=== PATIENT | female | born 1995 | race African-American/Black ===

== ENCOUNTER 2017-10-01 11:28 | Emergency (ER) | payer SELFPAY ==
[2017-10-01 11:47] VITALS: BP 158/83
--- NOTE | 2017-10-01 12:36 | RAD ---
Examination: Left elbow, two views History: Fell Findings: There is no evidence for fracture, dislocation or synovial distension. There is a linear fo reign density noted on the skin surface or in the soft tissues of the upper arm. Correlate clinically . Impression: No recent injury identified. See above. Reported By:
--- NOTE | 2017-10-01 12:37 | RAD ---
Examination: Right knee, two views History: Fell Findings: AP and lateral views demonstrate no evidence for fracture, dislocation, patellar displaceme nt or synovial effusion. Joint spaces are maintained. Femoral-tibial alignment is anatomic. Impression: No recent injury identified. Reported By:
--- NOTE | 2017-10-01 12:45 | DR.GENAD ---
HPI - PCP Primary Care Physician: NFD - HPI Comment HPI Comment: DOG DID NOT BITE PATIENT. ABRASION RIGHT KNEE AND LEFT ELBOW. TD NOT UTD. - Complaint/Symptoms Chief Complaint Doctors Comments: FELL WITH HER CHILD IN HER ARM RUNNING AWAY FROM THE DOG. Chief Complaint:: PT C/O RT KNEE ABRASION AND LT ELBOW ABRASION. PT WAS HOLDING A INFANT WHILE BEING CHASED BY A DOG AND SHE TRIPPED AND FELL ONTO THE SIDE WALK WITH CHILD IN ARMS. - Nurses notes reviewed Nurses Notes Review: Yes - Source History Provided: Patient - Mode of Arrival Mode of Arrival: EMS - Timing Onset of Chief Complaint: 10/01/17 Came on: Suddenly - Duration Duration: Constant Duration: Hours - Severity Severity: Moderate PMH - PMH Past Medical History: No Past Surgical History: Yes Surgical History: Bowel Resection, , CABG/Valve Surgery, Other - Family History History of Family Medical Conditions: Yes Family Medical History: Diabetes Mellitus, Cancer, Coronary Artery Disease - Social History Does any household member use tobacco: Yes Alcohol Use: None Do you use any recreational Drugs:: No Lives With: Family Lives Where: Home - infectious screening In the last 2 months have you had wt loss of >10#?: NO Have you had fever, night sweats or hemotysis?: No Have you traveled outside the country in the last 6 months?: No Isolation: Standard ROS - Review of Systems Constitutional: No Symptoms Reported Eyes: No Symptoms Reported ENTM: No Symptoms Reported Respiratoy: No Symptoms Reported Cardiovascular: No Symptoms Reported Gastrointestinal/Abdominal: No Symptoms Reported Genitourinary: No Symptoms Reported Neurological: No Symptoms Reported Musculoskeletal: Joint Pain, Joint Swelling, Muscle Pain, Right, Left, Elbow, Knee Integumentary: Change in Color, Bruises, Other (ABRASIONS) Hematologic/Lymphatic: No Symptoms Reported Endocrine: No Symptoms Reported All Other Systems: Reviewed and Negative PE - Vital Signs Vitals: Temperature 98.3 F Pulse Rate 100 Respiratory Rate 20 Blood Pressure 158/83 O2 Sat by Pulse Oximetry 100 - General Limitations: No Limitations General Appearance: Alert - Head Head Exam: Normal Inspection - Eyes Eye exam: Normal Appearance - ENT ENT Exam: Normal External Ear Exam External Ear Exam: Normal External Inspection TM/Canal Exam: Bilateral Normal Nose Exam: Normal Nose Exam Mouth Exam: Normal Inspection Throat Exam: Normal Inspection - Neck Neck Exam: Normal Inspection - Chest Chest Inspection: Symmetric Chest Wall Rise - Respiratory Respiratory Exam: Normal Lung Sounds Bilat Respiratory Exam: Bilateral Clear to Auscultation - Cardiovascular Cardiovascular Exam: Regular Rate, Normal Rhythm, Normal Heart Sounds - Abdominal Exam Abdominal Exam: Normal Bowel Sounds, Soft. negative: Tenderness - Extremities Extremities Exam: Tenderness (ABRSION LT ELBOW AND RT KNEE WITH SWELLING. PHILIPPE.) - Back Back Exam: Normal Inspection - Neurologic Neurological Exam: Alert, Oriented X3 - Psychiatric Psychiatric Exam: Normal Affect, Normal Mood - Skin Skin Exam: Erythema MDM - Differential Diagnosis Differential Diagnosis: RIGHT KNEE SPRAIN AND ABRASION, LEFT ELBOW CONTUSION AND ABRASION Course - Treatment Treatment: SEE ORDERS. ABRSION CLEAN AND NEOSPORIN APPLIED. - Education/Counseling Education/Counseling: Patient, Education Educated On: Treatment, Diagnosis, Needs for Follow Up ROR - XRAY XRAY Findings: REPORT DISCUSS WITH PATIENT. - Diagnosis Discharge Problem: Abrasion, right knee, initial encounter Left elbow contusion Qualifiers: Encounter type: initial encounter Qualified Code(s): S50.02XA - Contusion of left elbow, initial encounter Abrasion of left elbow Qualifiers: Encounter type: initial encounter Qualified Code(s): S50.312A - Abrasion of left elbow, initial encounter Right knee sprain Qualifiers: Encounter type: initial encounter Involved ligament of knee: unspecified ligament Qualified Code(s): S83.91XA - Sprain of unspecified site of right knee , initial encounter - Discharge Plan Disposition: 01 HOME, SELF-CARE Condition: Stable Prescriptions: Ibuprofen [MOTRIN TAB 600 MG *] 600 mg PO TID PRN #20 tab PRN Reason: Pain/Inflammation - Follow ups/Referrals Follow ups/Referrals: NFD,None [Primary Care Provider] - 2 days - Instructions Instructions: Smoking Cessation, Tips for Success, [id number], Musculoskeletal Pain, Knee Pain, [id number] Additional Instructions: RETURN TO ED IF WORSE.
[2017-10-01] MEDS ORDERED: HYDROGEN PEROXIDE 3% ONE (13:04)
[2017-10-01] MEDS ORDERED: NEOSPORIN OINT ONE (13:04)
== END 2017-10-01 13:13 | disposition home or self-care (01) ==
LOC: ER 11:42
DX: S80.211A Abrasion, right knee, initial encounter (principal); S50.02XA Contusion of left elbow, initial encounter; S50.312A Abrasion of left elbow, initial encounter; S83.91XA Sprain of unspecified site of right knee, initial encounter; W19.XXXA Unspecified fall, initial encounter; Y92.9 Unspecified place or not applicable
CPT/HCPCS: 73070; 73560; 99282

== ENCOUNTER 2018-03-09 15:16 | Observation (INO) | payer MEDICAID ==
--- NOTE | 2018-03-09 15:45 | ED.ABDFE ---
HPI - Time seen Time seen: 15:40 - PCP Primary Care Physician: NFD - Complaint Chief Complaint Doctors Comments: ABDOMINAL PAIN, N/V/D TIMES 3 DAYS. Chief Complaint:: PT. C/O ABDOMINAL PAIN, N/V/D. - Nurses notes reviewed Nurses Notes Review: Yes - Source History Provided: Patient - Mode of arrival Mode of Arrival: Ambulatory - Timing Onset of Chief Complaint: 03/06/18 Came on: Suddenly - Duration Duration: Constant Duration: Days - Location Location: Diffuse - Severity Severity: Moderate - Quality Quality: Cramping - Context Onset: Suddenly History of: None - Modifying Worsening Factors: Nothing Improving Factors: Nothing - Associated signs and symptoms Associated Signs and Symptoms: Nausea, Vomiting, Diarrhea PMH - PMH Past Medical History: No Past Surgical History: Yes Surgical History: Bowel Resection, , CABG/Valve Surgery, Other - Family History History of Family Medical Conditions: Yes Family Medical History: Diabetes Mellitus, Cancer, Coronary Artery Disease - Social History Does patient currently use any type of tobacco product: Yes Have you used tobacco products in the last 12 months: Yes Type of Tobacco Use: Cigarettes Does any household member use tobacco: No Alcohol Use: None Do you use any recreational Drugs:: No Lives With: Alone Lives Where: Home - infectious screening In the last 2 months have you had wt loss of >10#?: NO Have you had fever, night sweats or hemotysis?: No Have you traveled outside the country in the last 6 months?: No Isolation: Standard ROS - Review of Systems Constitutional: No Symptoms Reported Eyes: No Symptoms Reported ENTM: No Symptoms Reported Respiratoy: No Symptoms Reported Cardiovascular: No Symptoms Reported Gastrointestinal/Abdominal: Abdominal Pain, Diarrhea, Nausea, Vomiting Genitourinary: No Symptoms Reported Neurological: No Symptoms Reported Musculoskeletal: No Symptoms Reported Integumentary: No Symptoms Reported Hematologic/Lymphatic: No Symptoms Reported Endocrine: No Symptoms Reported All Other Systems: Reviewed and Negative PE - Vital Signs Vitals: Temperature 99.6 F Pulse Rate [Left Brachial] 91 Pulse Rate 130 Respiratory Rate 18 Blood Pressure [Left Arm] 120/57 Blood Pressure 128/87 O2 Sat by Pulse Oximetry 100 - General Limitations: No Limitations General Appearance: Alert - Head Head Exam: Normal Inspection - Eyes Eye exam: Normal Appearance - ENT ENT Exam: Normal External Ear Exam - Neck Neck Exam: Trachea Midline - Chest Chest Inspection: Symmetric Chest Wall Rise - Respiratory Respiratory Exam: Prolonged Expiratory Phase Respiratory Exam: Bilateral Clear to Auscultation - Cardiovascular Cardiovascular Exam: Regular Rate, Normal Rhythm, Normal Heart Sounds - Abdominal Exam Abdominal Exam: Normal Bowel Sounds, Soft, Tenderness Abdominal Tenderness: Diffuse, Moderate - Rectal Rectal Exam: Deferred - Back Back Exam: Normal Inspection - Extremeties Extremities Exam: Normal Inspection - External Exam: Female: Deferred : Speculum Exam (Female): Deferred : Bimanual Exam (female): Deferred - Neurologic Neurological Exam: Alert, Oriented X3 - Psychiatric Psychiatric Exam: Normal Affect, Normal Mood - Skin Skin Exam: Normal Color MDM - Differential Diagnosis Differential Diagnosis- Considerations may include:: Bowel Obstruction, Cholcystitis, Cholelethiasis, Constipation, Diverticular disease, Gastritus/PUD , Gastroenteritis, Ovarian cyst/torsion, Pancreatitis, Urinary tract infection, Urolithiasis Course - Treatment Treatment: SEE ORDERS. SURGERY CONSULT. - Consultation Consultation Comments: DISCUSS PATIENT WITH DR. PALM, SURGEON. HERE IN ED AND SAW PATIENT . CT ABD/PELVIS WITH PO CONTRAST. PT ALLERGIC TO IV CONTRAST. DR. STONE WILL ADMIT PT. - Education/Counseling Education/Counseling: Patient, Education Educated On: Treatment, Diagnosis, Needs for Follow Up ROR - Labs Reviewed Laboratory Results Reviewed?: Yes Result Diagrams: 03/09/18 16:27 03/09/18 16:27 Laboratory: WBC 17.9 X10^3/uL (3.6-10.0) H 03/09/18 16:27 RBC 5.32 X10^6/uL (3.5-5.4) 03/09/18 16:27 Hgb 12.0 g/dL (12.0-16.0) 03/09/18 16:27 Hct 37.3 % (36.0-47.0) 03/09/18 16:27 MCV 70.0 fL (80.0-100.0) L 03/09/18 16:27 MCH 22.6 pg (27.0-34.0) L 03/09/18 16:27 MCHC 32.3 g/dL (33.0-35.0) L 03/09/18 16:27 RDW 16.6 % (11.6-16.5) H 03/09/18 16:27 Plt Count 277 X10^3/uL (150.0-450.0) 03/09/18 16:27 Plt Count Comment Adequate (ADEQUATE) 03/09/18 16:27 MPV 8.8 fL (7.4-11.0) 03/09/18 16:27 Neut % (Auto) 79.3 % (42.0-75.0) H 03/09/18 16:27 Lymph % (Auto) 9.4 % (21.0-51.0) L 03/09/18 16:27 [place] % (Auto) 10.8 % (0.0-13.0) 03/09/18 16:27 Eos % (Auto) 0.3 % (0.9-2.9) L 03/09/18 16:27 Baso % (Auto) 0.2 % (0.2-1.0) 03/09/18 16:27 Neut # (Auto) 14.2 x10^3/uL (2.2-4.8) H 03/09/18 16:27 Lymph # (Auto) 1.7 X10^3/uL (1.3-2.9) 03/09/18 16:27 [place] # (Auto) 1.9 x10^3/uL (0.3-0.8) H 03/09/18 16:27 Eos # (Auto) 0.0 x10^3/uL (0.0-0.2) 03/09/18 16:27 Baso # (Auto) 0.0 X10^3/uL (0.0-0.1) 03/09/18 16:27 Absolute Nucleated RBC 0.0 /100WBC 03/09/18 16:27 Plt Morphology Comment Normal (NORMAL) 03/09/18 16: RBC Morphology Abnormal (NORMAL) A 03/09/18 16:27 Hypochromasia 2+ A 03/09/18 16:27 Anisocytosis Slight A 03/09/18 16:27 Microcytosis Slight A 03/09/18 16:27 Tear Drop Cells R 03/09/18 16:27 Sodium 140 mmol/L (136-145) 03/09/18 16:27 Corrected Sodium TNP 03/09/18 16:27 Potassium 3.5 mmol/L (3.5-5.1) 03/09/18 16:27 Chloride 100 mmol/L (98-107) 03/09/18 16:27 Carbon Dioxide 29.7 mmol/L (21-32) 03/09/18 16:27 BUN 6 mg/dL (7-18) L 03/09/18 16:27 Creatinine 0.77 mg/dL (0.55-1.02) 03/09/18 16:27 Est GFR (MDRD) Af Amer > 60 (>60) 03/09/18 16:27 Est GFR (MDRD) Non-Af > 60 (>60) 03/09/18 16:27 Glucose 95 mg/dL (65-99) 03/09/18 16:27 Calcium 8.8 mg/dL (8.5-10.1) 03/09/18 16:27 Corrected Calcium TNP 03/09/18 16:27 Total Bilirubin 1.00 mg/dL (0.2-1.0) 03/09/18 16:27 AST 9 Units/L (15-37) L 03/09/18 16:27 ALT 14 Units/L (12-78) 03/09/18 16:27 Alkaline Phosphatase 69 Units/L (46-116) 03/09/18 16:27 Total Protein 9.5 g/dL (6.4-8.2) H 03/09/18 16:27 Albumin 3.8 g/dL (3.4-5.0) 03/09/18 16:27 Globulin 5.7 g/dL (2.5-4.5) H 03/09/18 16:27 Albumin/Globulin Ratio 0.7 Ratio (1.1-2.1) L 03/09/18 16:27 Amylase 37 Units/L (25-115) 03/09/18 16:27 Lipase 61 Units/L (73-393) L 03/09/18 16:27 Specimen Type Clean catch urine 03/09/18 16:15 Urine Color Yellow (YELLOW) 03/09/18 16:15 Urine Appearance Slightly hazy (CLEAR) 03/09/18 16:15 Urine pH 9.0 (5.0 - 8.0) 03/09/18 16:15 Ur Specific Carrier 1.015 (1.000-1.030) 03/09/18 16:15 Urine Protein 1+ (NEGATIVE) 03/09/18 16:15 Urine Glucose (UA) Negative (NEGATIVE) 03/09/18 16:15 Urine Ketones Negative (NEGATIVE) 03/09/18 16:15 Urine Occult Blood 1+ (NEGATIVE) 03/09/18 16:15 Urine Nitrite Negative (NEGATIVE) 03/09/18 16:15 Urine Bilirubin Negative (NEGATIVE) 03/09/18 16:15 Urine Urobilinogen Normal (NORMAL) 03/09/18 16:15 Ur Leukocyte Esterase 1+ (NEGATIVE) 03/09/18 16:15 Urine RBC 0-2 /HPF (NONE SEEN) 03/09/18 16:15 Urine WBC 0-2 /HPF (NONE SEEN) 03/09/18 16:15 Ur Squamous Epith Cells Many /HPF (NEGATIVE) 03/09/18 16:15 Urine Bacteria Trace /HPF (NEGATIVE) 03/09/18 16:15 Urine Mucus Few /HPF (NEGATIVE) 03/09/18 16:15 Ur Culture Indicated? No/not indicated 03/09/18 16:15 - XRAY XRAY Interpreted by: Radiologist XRAY Findings: REPORT DISCUSS WITH PATIENT. - Diagnosis Discharge Problem: Abdominal pain Qualifiers: Abdominal location: generalized Qualified Code(s): R10.84 - Generalized abdominal pain Leukocytosis Qualifiers: Leukocytosis type: unspecified Qualified Code(s): D72.829 - Elevated white blood cell count, unspecified - Discharge Plan Disposition: ADMITTED INPATIENT Condition: Stable - Follow ups/Referrals - Instructions
[2018-03-09] MEDS ORDERED: ZOFRAN INJ 4 MG VIAL IM ONE (16:12)
[2018-03-09] MEDS ORDERED: PEPCID TAB 20 MG PO ONE (16:13)
[2018-03-09] MEDS ORDERED: ZOFRAN INJ 4 MG VIAL ONE (16:16)
[2018-03-09] MEDS ORDERED: PEPCID TAB 20 MG ONE (16:16)
[2018-03-09 16:34] LABS: BASOPHILS % (AUTO) 0.2 % (0.2-1.0); EOSINOPHILS % (AUTO) 0.3 % (0.9-2.9); HEMATOCRIT 37.3 % (36.0-47.0); LYMPHOCYTES # (AUTO) 1.7 X10^3/uL (1.3-2.9); LYMPHOCYTES % (AUTO) 9.4 % (21.0-51.0); MEAN CORPUSCULAR HEMOGLOBIN 22.6 pg (27.0-34.0); MEAN CORPUSCULAR HGB CONC 32.3 g/dL (33.0-35.0); MEAN PLATELET VOLUME 8.8 fL (7.4-11.0); MONOCYTES # (AUTO) 1.9 x10^3/uL (0.3-0.8); MONOCYTES % (AUTO) 10.8 % (0.0-13.0); NEUTROPHILS # (AUTO) 14.2 x10^3/uL (2.2-4.8); NEUTROPHILS % (AUTO) 79.3 % (42.0-75.0); PLATELET COUNT 277 X10^3/uL (150.0-450.0); RED BLOOD COUNT 5.32 X10^6/uL (3.5-5.4); RED CELL DISTRIBUTION WIDTH 16.6 % (11.6-16.5); WHITE BLOOD COUNT 17.9 X10^3/uL (3.6-10.0)
[2018-03-09 16:34] LABS: BILIRUBIN,URINE NEGATIVE (NEGATIVE); BLOOD/HEMOGLOBIN,URINE 1+ (NEGATIVE); GLUCOSE, URINE NEGATIVE (NEGATIVE); KETONES,URINE NEGATIVE (NEGATIVE); LEUKOCYTE ESTERASE ,URINE 1+ (NEGATIVE); NITRITES,URINE NEGATIVE (NEGATIVE); PROTEIN,URINE 1+ (NEGATIVE); UROBILINOGEN,URINE NORMAL (NORMAL)
[2018-03-09 16:38] LABS: APPEARANCE,URINE SLIGHTLY HAZY (CLEAR); COLOR,URINE YELLOW (YELLOW)
[2018-03-09 16:41] LABS: BACTERIA,URINE TRACE /HPF (NEGATIVE); MUCUS,URINE FEW /HPF (NEGATIVE); RBC,URINE 0-2 /HPF (NONE SEEN); SQUAMOUS EPITHELIAL CELL,UR MANY /HPF (NEGATIVE)
[2018-03-09 16:44] LABS: HYPOCHROMASIA 2+; PLATELET MORPHOLOGY COMMENT NORMAL (NORMAL)
[2018-03-09 16:45] LABS: MICROCYTOSIS SLIGHT
[2018-03-09 16:46] LABS: ALANINE AMINOTRANSFERASE 14 Units/L (12-78); ALBUMIN 3.8 g/dL (3.4-5.0); ALKALINE PHOSPHATASE 69 Units/L (46-116); AMYLASE 37 Units/L (25-115); ASPARTATE AMINO TRANSFERASE 9 Units/L (15-37); BLOOD UREA NITROGEN 6 mg/dL (7-18); CALCIUM 8.8 mg/dL (8.5-10.1); CARBON DIOXIDE 29.7 mmol/L (21-32); CHLORIDE 100 mmol/L (98-107); CREATININE 0.77 mg/dL (0.55-1.02); LIPASE 61 Units/L (73-393); SODIUM 140 mmol/L (136-145); TOTAL PROTEIN 9.5 g/dL (6.4-8.2); eGFR BLACK RACES > 60 (>60); eGFR NON BLACK RACES > 60 (>60)
--- NOTE | 2018-03-09 16:53 | RAD ---
HISTORY: Radiating mid abdominal pain Study: Acute abdominal series, three views were obtained Comparison: May 07, 2016 Findings: The heart is normal. The lungs are clear. There is no pneumoperitoneum. There is a normal bowel gas p attern. Focal lumbar levoscoliosis is noted is noted at the L3-4 level convex to the left. IMPRESSION: No definite acute finding within the chest or abdomen. Reported By:
[2018-03-09] MEDS ORDERED: BENTYL I.M. INJ 10 MG IM ONE ×2 (17:10→17:12)
--- NOTE | 2018-03-09 19:13 | CT ---
CT ABDOMEN AND PELVIS WITHOUT CONTRAST CLINICAL HISTORY: 23-year-old female with abdominal pain. Patient with history of prior colostomy and section. COMPARISON: None. TECHNIQUE: Multiple contiguous computed tomographic axial images of the abdomen and pelvis were obtai valentín without the use of oral or intravenous contrast. Images were reformatted in the coronal and sagit marianna planes. FINDINGS: Study is significantly limited secondary to lack of contrast. The lung bases demonstrate no evidence of focal air-space opacification, pleural effusion, pneumothor ax, or suspicious pulmonary nodules. The imaged inferior mediastinum and heart are normal in appeara nce without evidence of pericardial effusion. The liver, gallbladder, pancreas, and spleen are within normal limits for noncontrast imaging. The adrenal glands and kidneys are normal bilaterally. There are no nephroureteral stones or perineph judy fluid collections. There is no evidence of hydroureteronephrosis and the ureters run in an unobst ructed course to a well distended urinary bladder. Focal fluid collection measuring 1.2 x 1.9 x 1.8 cm (AP, transverse and craniocaudad) at the level of the right inguinal canal within the subcutaneous fat adjacent to an apparent fascial defect. The uterus is anteverted, retroflexed and normal in size. The ovaries, vagina and perineum are withi n normal limits. Appendix is not visualized. The bowel is without obstruction or inflammation and there is no free fl uid or free air within the peritoneal cavity. There are no pathologically enlarged lymph nodes in th e abdomen or pelvis. The arteriovascular structures are within normal limits for a study without contrast. The osseous structures are intact without fracture or malalignment. IMPRESSION: 1. Fluid collection in the subcutaneous fat at the level of the right inguinal canal as described abo ve concerning for small incarcerated bladder hernia. Differential considerations include (but are not limited to) incarcerated bowel hernia, however, less likely given lack of signs of bowel obstruction ; fat containing hernia and small seroma/hematoma. Evaluation utilizing intravenous and oral contrast would be beneficial. 2. No other acute intra-abdominal intrapelvic process. Reported By:
[2018-03-09] MEDS ORDERED: NS 1000 ML 1,000 ML ONE (19:32)
[2018-03-09] MEDS ORDERED: NS 1000 ML 1,000 ML IV ONE (19:48)
[2018-03-09] MEDS ORDERED: PEPCID 20 MG IV PREMIX* 20 MG/50 ML BAG IV PRN (21:28)
[2018-03-09] MEDS ORDERED: TYLENOL 325 MG TAB PO PRN (21:28)
[2018-03-09] MEDS ORDERED: MORPHINE SULFATE INJ 2 MG INJ IVP PRN (21:28)
[2018-03-09] MEDS ORDERED: ZOFRAN INJ 4 MG VIAL IVP PRN (21:28)
[2018-03-09 23:25] VITALS: BMI 18.5
--- NOTE | 2018-03-09 23:50 | CT ---
CT abdomen and pelvis without contrast Indication: Abdominal pain Technique: Helical CT images of the abdomen and pelvis were obtained without IV contrast. Reformatted images in the coronal and sagittal planes were also generated for review. Comparison: 03/09/2018 Findings: Lung bases are clear. No aggressive osseous lesions are identified. Within the limits of a noncontrast exam, the liver, gallbladder, spleen, pancreas, adrenals and kidne ys are grossly unremarkable. Oral contrast is present throughout the GI tract to the level of the sigmoid colon without evidence o f obstruction. The retrocecal appendix is normal. Small fluid collection within the right inguinal canal is again noted and unchanged since earlier tod ay. No enteric contrast is seen within the collection to suggest a herniated bowel loop. The IVC and abdominal aorta are normal. The unenhanced uterus and adnexa are grossly within normal limits. The ur inary bladder again closely approximates the right inguinal fluid collection but is otherwise grossly within normal limits. No free air, significant free fluid or bulky lymphadenopathy is identified. Impression: Stable small indeterminate fluid collection within the right inguinal canal. No enteric contrast is i dentified within the fluid collection to suggest bowel herniation. Otherwise, the remainder of the ex am as well as differentials for the right inguinal fluid collection remain unchanged since earlier to day. Repeat exam with intravenous contrast and enteric contrast is again recommended, when clinically possible. Reported By:
[2018-03-10] MEDS: NS 1000 ML 1,000 ML IV SCH ×4 (01:30→20:46)
[2018-03-10 06:24] LABS: ALANINE AMINOTRANSFERASE 11 Units/L (12-78); ALBUMIN 3.1 g/dL (3.4-5.0); ALKALINE PHOSPHATASE 60 Units/L (46-116); ASPARTATE AMINO TRANSFERASE 9 Units/L (15-37); BLOOD UREA NITROGEN 6 mg/dL (7-18); CALCIUM 8.3 mg/dL (8.5-10.1); CARBON DIOXIDE 28.3 mmol/L (21-32); CHLORIDE 104 mmol/L (98-107); CREATININE 0.76 mg/dL (0.55-1.02); SODIUM 141 mmol/L (136-145); TOTAL PROTEIN 7.5 g/dL (6.4-8.2); eGFR BLACK RACES > 60 (>60); eGFR NON BLACK RACES > 60 (>60)
[2018-03-10 06:26] LABS: BASOPHILS # (AUTO) 0.1 X10^3/uL (0.0-0.1); BASOPHILS % (AUTO) 0.5 % (0.2-1.0); EOSINOPHILS # (AUTO) 0.1 x10^3/uL (0.0-0.2); EOSINOPHILS % (AUTO) 0.6 % (0.9-2.9); HEMATOCRIT 32.1 % (36.0-47.0); HEMOGLOBIN 10.2 g/dL (12.0-16.0); LYMPHOCYTES # (AUTO) 1.2 X10^3/uL (1.3-2.9); LYMPHOCYTES % (AUTO) 9.7 % (21.0-51.0); MEAN CORPUSCULAR HEMOGLOBIN 22.3 pg (27.0-34.0); MEAN CORPUSCULAR HGB CONC 31.8 g/dL (33.0-35.0); MEAN CORPUSCULAR VOLUME 70.1 fL (80.0-100.0); MEAN PLATELET VOLUME 9.8 fL (7.4-11.0); MONOCYTES # (AUTO) 1.5 x10^3/uL (0.3-0.8); MONOCYTES % (AUTO) 11.7 % (0.0-13.0); NEUTROPHILS # (AUTO) 9.6 x10^3/uL (2.2-4.8); NEUTROPHILS % (AUTO) 77.5 % (42.0-75.0); PLATELET COUNT 246 X10^3/uL (150.0-450.0); RED BLOOD COUNT 4.58 X10^6/uL (3.5-5.4); RED CELL DISTRIBUTION WIDTH 16.3 % (11.6-16.5); WHITE BLOOD COUNT 12.4 X10^3/uL (3.6-10.0)
[2018-03-10 06:34] LABS: HYPOCHROMASIA 1+; PLATELET MORPHOLOGY COMMENT NORMAL (NORMAL)
[2018-03-10 06:35] LABS: TARGET CELLS FEW
[2018-03-10 10:21] LABS: TARGET CELLS RARE
[2018-03-10 10:22] LABS: ANISOCYTOSIS SLIGHT
[2018-03-10] MEDS ORDERED: DIPRIVAN VIAL 20 ML ONE (13:35)
--- NOTE | 2018-03-10 14:08 | OR.GENERIC ---
Post-Op Note Generic - Post-Op Note Operative Report: EGD was done findings: mild to moderate gastritis involving the gastric koch .. no active ulcers , no bleeding , obstruction or varecis Bxs were obtained from DU,Antrum and . Fundus for GB US this afternoon
--- NOTE | 2018-03-10 15:38 | US ---
Gallbladder sonogram Indication:Abdominal pain Comparison: None available Technique: Multiple ordonez scale and color flow Doppler images of the right upper quadrant were obtaine d. Findings: The gallbladder is normal in caliber however contains mobile stone within the gallbladder fundus. The gallbladder wall thickness measures up to 2 mm without pericholecystic fluid. The ground crew chief report s a positive sonographic Smith sign. The common bile duct measures 4 mm. The visualized liver demons trates no focal hepatic lesion with normal echotexture an the largest portion of the liver measures 9 .6 cm in greatest dimension. Normal flow is noted within the portal vein, hepatic artery and hepatic veins. Right kidney measures 9.0 cm in greatest length without evidence of hydronephrosis or mass. The visua lized portions of the IVC and pancreatic head are unremarkable. IMPRESSION: 1.Indeterminate evaluation of the gallbladder, there is cholelithiasis with reported positive sonogra phic Smith sign which is suspicious for acute cholecystitis; however there is no gallbladder wall th ickening or pericholecystic fluid to confirm acute inflammation. If it will make a difference in kam ent care consider correlation with nuclear medicine HIDA scan for exclusion of acute cholecystitis. Reported By:
[2018-03-11] MEDS: NS 1000 ML 1,000 ML IV SCH (04:17)
[2018-03-11 06:05] LABS: BASOPHILS % (AUTO) 0.7 % (0.2-1.0); EOSINOPHILS # (AUTO) 0.1 x10^3/uL (0.0-0.2); EOSINOPHILS % (AUTO) 2.3 % (0.9-2.9); HEMATOCRIT 28.2 % (36.0-47.0); LYMPHOCYTES # (AUTO) 1.2 X10^3/uL (1.3-2.9); MEAN CORPUSCULAR HEMOGLOBIN 22.8 pg (27.0-34.0); MEAN CORPUSCULAR HGB CONC 31.9 g/dL (33.0-35.0); MEAN CORPUSCULAR VOLUME 71.6 fL (80.0-100.0); MEAN PLATELET VOLUME 9.4 fL (7.4-11.0); MONOCYTES # (AUTO) 0.8 x10^3/uL (0.3-0.8); NEUTROPHILS # (AUTO) 4.2 x10^3/uL (2.2-4.8); PLATELET COUNT 213 X10^3/uL (150.0-450.0); RED BLOOD COUNT 3.94 X10^6/uL (3.5-5.4); RED CELL DISTRIBUTION WIDTH 16.1 % (11.6-16.5); WHITE BLOOD COUNT 6.4 X10^3/uL (3.6-10.0)
[2018-03-11 06:27] LABS: BLOOD UREA NITROGEN 6 mg/dL (7-18); CARBON DIOXIDE 25.9 mmol/L (21-32); CHLORIDE 106 mmol/L (98-107); CREATININE 0.65 mg/dL (0.55-1.02); SODIUM 141 mmol/L (136-145); eGFR BLACK RACES > 60 (>60); eGFR NON BLACK RACES > 60 (>60)
[2018-03-11 06:49] LABS: PLATELET MORPHOLOGY COMMENT NORMAL (NORMAL)
[2018-03-11 06:51] LABS: HYPOCHROMASIA 1+
[2018-03-11 08:26] VITALS: BP 126/74
--- NOTE | 2018-03-11 09:01 | DR.PROGNOT ---
Hospital Progress Notes - Progress Note for Day of: Progress Note Date: 03/11/18 - Chief Complaint Chief Complaint: less abdominal pain , no nausea or vomiting . still having mid abdominal pain .afebrile , WBC normal today . GB US skowed cholilathiasis . - Past Medical Family Social History Past Med/Fam/Surg Hx: No changes since H&P Allergies: Allergies iodine Allergy (Verified 03/09/18 15:20) shrimp Allergy (Verified 03/09/18 15:20) - Review Of Systems ROS: No change since H&P - Vital Signs Vital Signs: Temperature 98.9 F Pulse Rate [Left Brachial] 52 Pulse Rate 130 Respiratory Rate 18 Blood Pressure [Left Arm] 126/74 Blood Pressure 128/87 O2 Sat by Pulse Oximetry 100 - Physical Exam Oriented: Normal Eyes: Normal Ear: Normal Nose: Normal Throat: Normal Respiratory: Normal Cardiovascular: Normal : Normal GI:Auscultation: Normal GI: Tenderness: Epigastric, Other (generalized tendrness , no rebound or rigidity . BS +) Musculoskeletal: Normal Psychiatric: Normal Speech Pattern: Clear, Appropriate - Laboratory and Diagnostics Result Diagrams: 03/11/18 04:10 03/11/18 04:10 Labs: Laboratory WBC 6.4 X10^3/uL (3.6-10.0) 03/11/18 04:10 RBC 3.94 X10^6/uL (3.5-5.4) 03/11/18 04:10 Hgb 9.0 g/dL (12.0-16.0) L 03/11/18 04:10 Hct 28.2 % (36.0-47.0) L 03/11/18 04:10 MCV 71.6 fL (80.0-100.0) L 03/11/18 04:10 MCH 22.8 pg (27.0-34.0) L 03/11/18 04:10 MCHC 31.9 g/dL (33.0-35.0) L 03/11/18 04:10 RDW 16.1 % (11.6-16.5) 03/11/18 04:10 Plt Count 213 X10^3/uL (150.0-450.0) 03/11/18 04:10 Plt Count Comment Adequate (ADEQUATE) 03/11/18 04:10 MPV 9.4 fL (7.4-11.0) 03/11/18 04:10 Neut % (Auto) 66.0 % (42.0-75.0) 03/11/18 04:10 Lymph % (Auto) 19.0 % (21.0-51.0) L 03/11/18 04:10 [place] % (Auto) 12.0 % (0.0-13.0) 03/11/18 04:10 Eos % (Auto) 2.3 % (0.9-2.9) 03/11/18 04:10 Baso % (Auto) 0.7 % (0.2-1.0) 03/11/18 04:10 Neut # (Auto) 4.2 x10^3/uL (2.2-4.8) 03/11/18 04:10 Lymph # (Auto) 1.2 X10^3/uL (1.3-2.9) L 03/11/18 04:10 [place] # (Auto) 0.8 x10^3/uL (0.3-0.8) 03/11/18 04:10 Eos # (Auto) 0.1 x10^3/uL (0.0-0.2) 03/11/18 04:10 Baso # (Auto) 0.0 X10^3/uL (0.0-0.1) 03/11/18 04:10 Absolute Nucleated RBC 0.1 /100WBC 03/11/18 04:10 Plt Morphology Comment Normal (NORMAL) 03/11/18 04:10 RBC Morphology Abnormal (NORMAL) A 03/11/18 04:10 Hypochromasia 1+ A 03/11/18 04:10 Anisocytosis Programmer Or Analyst 03/11/18 04:10 Microcytosis Slight A 03/09/18 16:27 Target Cells Few 03/10/18 04:05 Tear Drop Cells 03/09/18 16:27 Sodium 141 mmol/L (136-145) 03/11/18 04:10 Corrected Sodium TNP 03/11/18 04:10 Potassium 3.9 mmol/L (3.5-5.1) 03/11/18 04:10 Chloride 106 mmol/L (98-107) 03/11/18 04:10 Carbon Dioxide 25.9 mmol/L (21-32) 03/11/18 04:10 BUN 6 mg/dL (7-18) L 03/11/18 04:10 Creatinine 0.65 mg/dL (0.55-1.02) 03/11/18 04:10 Est GFR (MDRD) Af Amer > 60 (>60) 03/11/18 04:10 Est GFR (MDRD) Non-Af > 60 (>60) 03/11/18 04:10 Glucose 80 mg/dL (65-99) 03/11/18 04:10 Calcium 8.0 mg/dL (8.5-10.1) L 03/11/18 04:10 Corrected Calcium 9.0 mg/dL (8.5-10.1) 03/10/18 04:05 Total Bilirubin 1.10 mg/dL (0.2-1.0) H 03/10/18 04:05 AST 9 Units/L (15-37) L 03/10/18 04:05 ALT 11 Units/L (12-78) L 03/10/18 04:05 Alkaline Phosphatase 60 Units/L (46-116) 03/10/18 04:05 Total Protein 7.5 g/dL (6.4-8.2) 03/10/18 04:05 Albumin 3.1 g/dL (3.4-5.0) L 03/10/18 04:05 Globulin 4.4 g/dL (2.5-4.5) 03/10/18 04:05 Albumin/Globulin Ratio 0.7 Ratio (1.1-2.1) L 03/10/18 04:05 Amylase 37 Units/L (25-115) 03/09/18 16:27 Lipase 61 Units/L (73-393) L 03/09/18 16:27 Specimen Type Clean catch urine 03/09/18 16:15 Urine Color Yellow (YELLOW) 03/09/18 16:15 Urine Appearance Slightly hazy (CLEAR) 03/09/18 16:15 Urine pH 9.0 (5.0 - 8.0) 03/09/18 16:15 Ur Specific Platter 1.015 (1.000-1.030) 03/09/18 16:15 Urine Protein 1+ (NEGATIVE) 03/09/18 16:15 Urine Glucose (UA) Negative (NEGATIVE) 03/09/18 16:15 Urine Ketones Negative (NEGATIVE) 03/09/18 16:15 Urine Occult Blood 1+ (NEGATIVE) 03/09/18 16:15 Urine Nitrite Negative (NEGATIVE) 03/09/18 16:15 Urine Bilirubin Negative (NEGATIVE) 03/09/18 16:15 Urine Urobilinogen Normal (NORMAL) 03/09/18 16:15 Ur Leukocyte Esterase 1+ (NEGATIVE) 03/09/18 16:15 Urine RBC 0-2 /HPF (NONE SEEN) 03/09/18 16:15 Urine WBC 0-2 /HPF (NONE SEEN) 03/09/18 16:15 Ur Squamous Epith Cells Many /HPF (NEGATIVE) 03/09/18 16:15 Urine Bacteria Trace /HPF (NEGATIVE) 03/09/18 16:15 Urine Mucus Few /HPF (NEGATIVE) 03/09/18 16:15 Ur Culture Indicated? No/not indicated 03/09/18 16:15 Tissue Pathology To follow 03/10/18 14:00 - Assessment and Plan 1: recurrent calculus cholecystitis . gastritis. abdominal adhesions . will advance diet and follow in the office for future lap santhosh . - Problem Patient Problems: Patient Problems Abdominal pain (Acute) R10.9 Leukocytosis (Acute) D72.829
[2018-03-11 12:20] LABS: ALANINE AMINOTRANSFERASE 20 Units/L (12-78); ALBUMIN 2.7 g/dL (3.4-5.0); ALKALINE PHOSPHATASE 55 Units/L (46-116); ASPARTATE AMINO TRANSFERASE 24 Units/L (15-37); TOTAL PROTEIN 6.4 g/dL (6.4-8.2)
[2018-03-11] MEDS ORDERED: PEPCID 20 MG IV PREMIX* 20 MG/50 ML BAG IV SCH (21:00)
== END 2018-03-11 11:22 | disposition home or self-care (01) | DRG 378 ==
LOC: ER 15:24 → MED/SURG 21:27
PROVIDERS: ADMIT Obstetrics & Gynecology Obstetrics; ATTEND Obstetrics & Gynecology Obstetrics
PROC: 0DB78ZX Excision of Stomach, Pylorus, Via Natural or Artificial Opening Endoscopic, Diagnostic (ICD-10-PCS; 2018-03-10)
PROC: 0DB68ZX Excision of Stomach, Via Natural or Artificial Opening Endoscopic, Diagnostic (ICD-10-PCS; 2018-03-10)
PROC: 0DB98ZX Excision of Duodenum, Via Natural or Artificial Opening Endoscopic, Diagnostic (ICD-10-PCS; principal; 2018-03-10 13:30)
DX: K29.61 Other gastritis with bleeding (principal); K80.18 Calculus of gallbladder with other cholecystitis without obstruction; R10.84 Generalized abdominal pain; D72.828 Other elevated white blood cell count; R11.2 Nausea with vomiting, unspecified; R19.7 Diarrhea, unspecified; K40.90 Unilateral inguinal hernia, without obstruction or gangrene, not specified as recurrent; K21.9 Gastro-esophageal reflux disease without esophagitis; K44.9 Diaphragmatic hernia without obstruction or gangrene
CPT/HCPCS: 36415; 74022; 74176; 76705; 80053; 81001; 82150; 83690; 85025; 96365; 96372; 99284; A4222; S0028; A4217; G0378; J0500; J2405; J3490

== ENCOUNTER 2018-03-19 10:13 | Observation (INO) | payer MEDICAID ==
[2018-03-19 10:18] VITALS: BMI 20.7
--- NOTE | 2018-03-19 10:52 | DR.GENAD ---
HPI - PCP Primary Care Physician: none - HPI Comment HPI Comment: PATIENT WITH GALL STONE SEEN ON US ON IS HAVING INCREASING ABDOMINAL PAIN WITH NAUSEA. WAS TO SEE SURGEON TODAY BUT IN ED FOR INCREASING PAIN. - Complaint/Symptoms Chief Complaint Doctors Comments: ABDOMINAL PAIN. Chief Complaint:: "stomach pains since last week, i came to the ER last week and it has started back hurting" Self Treatment fo Chief Complaint: pt had a EGD done last week here and a galbladder ultrasound also nothing was found. - Nurses notes reviewed Nurses Notes Review: Yes - Source History Provided: Patient - Mode of Arrival Mode of Arrival: Ambulatory - Timing Onset of Chief Complaint: 03/12/18 Came on: Suddenly - Duration Duration: Constant Duration: Days - Severity Severity: Moderate PMH - PMH Past Medical History: No Past Surgical History: Yes Surgical History: Bowel Resection, , CABG/Valve Surgery, Other - Family History History of Family Medical Conditions: Yes Family Medical History: Diabetes Mellitus, Cancer, Coronary Artery Disease - Social History Does patient currently use any type of tobacco product: Yes Have you used tobacco products in the last 12 months: Yes Type of Tobacco Use: Cigarettes How many years tobacco product used: 3 Does any household member use tobacco: No Alcohol Use: None Do you use any recreational Drugs:: No Lives With: Family Lives Where: Home - infectious screening In the last 2 months have you had wt loss of >10#?: NO Have you had fever, night sweats or hemotysis?: No Have you traveled outside the country in the last 6 months?: No Isolation: Standard ROS - Review of Systems Constitutional: Weakness, Fatigue. negative: Chills, Fever Eyes: No Symptoms Reported. negative: Eye Pain, Discharge ENTM: No Symptoms Reported. negative: Ear Pain, Nose Discharge, Nose Congestion , Throat Pain Respiratoy: No Symptoms Reported Cardiovascular: No Symptoms Reported Gastrointestinal/Abdominal: Abdominal Pain, Nausea Genitourinary: No Symptoms Reported. negative: Dysuria, Frequency, Hematuria Neurological: No Symptoms Reported Musculoskeletal: No Symptoms Reported Integumentary: No Symptoms Reported Hematologic/Lymphatic: No Symptoms Reported Endocrine: No Symptoms Reported All Other Systems: Reviewed and Negative PE - Vital Signs Vitals: Temperature 98.5 F Pulse Rate 90 Respiratory Rate 18 Blood Pressure [Left Arm] 126/74 Blood Pressure 130/71 O2 Sat by Pulse Oximetry 100 - General Limitations: No Limitations General Appearance: Alert - Head Head Exam: Normal Inspection - Eyes Eye exam: Normal Appearance - ENT ENT Exam: Normal Exam, Normal External Ear Exam External Ear Exam: Normal External Inspection TM/Canal Exam: Bilateral Normal Nose Exam: Normal Nose Exam Mouth Exam: Normal Inspection Throat Exam: Normal Inspection - Neck Neck Exam: Trachea Midline - Chest Chest Inspection: Symmetric Chest Wall Rise - Respiratory Respiratory Exam: Normal Lung Sounds Bilat Respiratory Exam: Bilateral Clear to Auscultation - Cardiovascular Cardiovascular Exam: Regular Rate, Normal Rhythm, Normal Heart Sounds - Abdominal Exam Abdominal Exam: Normal Bowel Sounds, Soft, Tenderness Abdominal Tenderness: Diffuse, Moderate - Extremities Extremities Exam: Normal Inspection - Back Back Exam: Normal Inspection - Neurologic Neurological Exam: Alert, Oriented X3 - Psychiatric Psychiatric Exam: Anxious - Skin Skin Exam: Normal Color MDM - Differential Diagnosis Differential Diagnosis: ABDOMINAL PAIN, CHOLECYSTITIS Course - Treatment Treatment: SEE ORDERS. - Consultation Consultation Comments: DISCUSS PATIENT WITH DR. CASILLAS. HE WILL ADMIT PATIENT. SURGERY CONSULT SENT. - Education/Counseling Education/Counseling: Patient, Education Educated On: Diagnosis ROR - Labs Reviewed Laboratory Results Reviewed?: Yes Result Diagrams: 03/19/18 10:59 03/19/18 10:59 Laboratory: WBC 16.8 X10^3/uL (3.6-10.0) H 03/19/18 10:59 RBC 4.94 X10^6/uL (3.5-5.4) 03/19/18 10:59 Hgb 11.2 g/dL (12.0-16.0) L 03/19/18 10:59 Hct 34.3 % (36.0-47.0) L 03/19/18 10:59 MCV 69.4 fL (80.0-100.0) L 03/19/18 10:59 MCH 22.6 pg (27.0-34.0) L 03/19/18 10:59 MCHC 32.6 g/dL (33.0-35.0) L 03/19/18 10:59 RDW 15.6 % (11.6-16.5) 03/19/18 10:59 Plt Count 418 X10^3/uL (150.0-450.0) 03/19/18 10:59 Plt Count Comment Adequate (ADEQUATE) 03/19/18 10:59 MPV 8.2 fL (7.4-11.0) 03/19/18 10:59 Neut % (Auto) 79.3 % (42.0-75.0) H 03/19/18 10:59 Lymph % (Auto) 8.9 % (21.0-51.0) L 03/19/18 10:59 [place] % (Auto) 10.4 % (0.0-13.0) 03/19/18 10:59 Eos % (Auto) 0.6 % (0.9-2.9) L 03/19/18 10:59 Baso % (Auto) 0.8 % (0.2-1.0) 03/19/18 10:59 Neut # (Auto) 13.3 x10^3/uL (2.2-4.8) H 03/19/18 10:59 Lymph # (Auto) 1.5 X10^3/uL (1.3-2.9) 03/19/18 10:59 [place] # (Auto) 1.7 x10^3/uL (0.3-0.8) H 03/19/18 10:59 Eos # (Auto) 0.1 x10^3/uL (0.0-0.2) 03/19/18 10:59 Baso # (Auto) 0.1 X10^3/uL (0.0-0.1) 03/19/18 10:59 Absolute Nucleated RBC 0.0 /100WBC 03/19/18 10:59 Plt Morphology Comment Normal (NORMAL) 03/19/18 10:59 RBC Morphology Abnormal (NORMAL) A 03/19/18 10:59 Hypochromasia Slight A 03/19/18 10:59 Microcytosis Slight A 03/19/18 10:59 Sodium 137 mmol/L (136-145) 03/19/18 10:59 Corrected Sodium TNP 03/19/18 10:59 Potassium 4.0 mmol/L (3.5-5.1) 03/19/18 10:59 Chloride 101 mmol/L (98-107) 03/19/18 10:59 Carbon Dioxide 27.5 mmol/L (21-32) 03/19/18 10:59 BUN 8 mg/dL (7-18) 03/19/18 10:59 Creatinine 0.71 mg/dL (0.55-1.02) 03/19/18 10:59 Est GFR (MDRD) Af Amer > 60 (>60) 03/19/18 10:59 Est GFR (MDRD) Non-Af > 60 (>60) 03/19/18 10:59 Glucose 93 mg/dL (65-99) 03/19/18 10:59 Calcium 8.9 mg/dL (8.5-10.1) 03/19/18 10:59 Corrected Calcium TNP 03/19/18 10:59 Total Bilirubin 0.80 mg/dL (0.2-1.0) 03/19/18 10:59 AST 12 Units/L (15-37) L 03/19/18 10:59 ALT 17 Units/L (12-78) 03/19/18 10:59 Alkaline Phosphatase 70 Units/L (46-116) 03/19/18 10:59 Total Protein 8.4 g/dL (6.4-8.2) H 03/19/18 10:59 Albumin 3.5 g/dL (3.4-5.0) 03/19/18 10:59 Globulin 4.9 g/dL (2.5-4.5) H 03/19/18 10:59 Albumin/Globulin Ratio 0.7 Ratio (1.1-2.1) L 03/19/18 10:59 Amylase 49 Units/L (25-115) 03/19/18 10:59 Lipase 77 Units/L (73-393) 03/19/18 10:59 Specimen Type Random urine 03/19/18 10:51 Urine Color Yellow (YELLOW) 03/19/18 10:51 Urine Appearance Slightly hazy (CLEAR) 03/19/18 10:51 Urine pH 5.0 (5.0 - 8.0) 03/19/18 10:51 Ur Specific [place] 1.010 (1.000-1.030) 03/19/18 10:51 Urine Protein Negative (NEGATIVE) 03/19/18 10:51 Urine Glucose (UA) Negative (NEGATIVE) 03/19/18 10:51 Urine Ketones Negative (NEGATIVE) 03/19/18 10:51 Urine Occult Blood Negative (NEGATIVE) 03/19/18 10:51 Urine Nitrite Negative (NEGATIVE) 03/19/18 10:51 Urine Bilirubin Negative (NEGATIVE) 03/19/18 10:51 Urine Urobilinogen 1+ (NORMAL) 03/19/18 10:51 Ur Leukocyte Esterase 1+ (NEGATIVE) 03/19/18 10:51 Urine RBC None seen /HPF (NONE SEEN) 03/19/18 10:51 Urine WBC 0-2 /HPF (NONE SEEN) 03/19/18 10:51 Ur Squamous Epith Cells Many /HPF (NEGATIVE) 03/19/18 10:51 Ur Transition Epith Cell Many /HPF (NEGATIVE) 03/19/18 10:51 Urine Bacteria Negative /HPF (NEGATIVE) 03/19/18 10:51 Urine Mucus Moderate /HPF (NEGATIVE) 03/19/18 10:51 Ur Culture Indicated? No/not indicated 03/19/18 10:51 - Diagnosis Discharge Problem: Gall stone Qualifiers: Cholecystitis presence: with cholecystitis Cholecystitis acuity: acute Biliary obstruction: without biliary obstruction Qualified Code(s): K80.00 - Calculus of gallbladder with acute cholecystitis without obstruction Abdominal pain Qualifiers: Abdominal location: generalized Qualified Code(s): R10.84 - Generalized abdominal pain Leukocytosis Qualifiers: Leukocytosis type: unspecified Qualified Code(s): D72.829 - Elevated white blood cell count, unspecified - Discharge Plan Disposition: 30 STILL A PATIENT Condition: Stable - Follow ups/Referrals - Instructions
[2018-03-19] MEDS: NS 1000 ML 1,000 ML IV SCH ×2 (10:59→20:38)
[2018-03-19 11:08] LABS: BASOPHILS # (AUTO) 0.1 X10^3/uL (0.0-0.1); BASOPHILS % (AUTO) 0.8 % (0.2-1.0); EOSINOPHILS # (AUTO) 0.1 x10^3/uL (0.0-0.2); EOSINOPHILS % (AUTO) 0.6 % (0.9-2.9); HEMATOCRIT 34.3 % (36.0-47.0); HEMOGLOBIN 11.2 g/dL (12.0-16.0); LYMPHOCYTES # (AUTO) 1.5 X10^3/uL (1.3-2.9); LYMPHOCYTES % (AUTO) 8.9 % (21.0-51.0); MEAN CORPUSCULAR HEMOGLOBIN 22.6 pg (27.0-34.0); MEAN CORPUSCULAR HGB CONC 32.6 g/dL (33.0-35.0); MEAN CORPUSCULAR VOLUME 69.4 fL (80.0-100.0); MEAN PLATELET VOLUME 8.2 fL (7.4-11.0); MONOCYTES # (AUTO) 1.7 x10^3/uL (0.3-0.8); MONOCYTES % (AUTO) 10.4 % (0.0-13.0); NEUTROPHILS # (AUTO) 13.3 x10^3/uL (2.2-4.8); NEUTROPHILS % (AUTO) 79.3 % (42.0-75.0); PLATELET COUNT 418 X10^3/uL (150.0-450.0); RED BLOOD COUNT 4.94 X10^6/uL (3.5-5.4); RED CELL DISTRIBUTION WIDTH 15.6 % (11.6-16.5); WHITE BLOOD COUNT 16.8 X10^3/uL (3.6-10.0)
[2018-03-19 11:17] LABS: BILIRUBIN,URINE NEGATIVE (NEGATIVE); BLOOD/HEMOGLOBIN,URINE NEGATIVE (NEGATIVE); GLUCOSE, URINE NEGATIVE (NEGATIVE); KETONES,URINE NEGATIVE (NEGATIVE); LEUKOCYTE ESTERASE ,URINE 1+ (NEGATIVE); NITRITES,URINE NEGATIVE (NEGATIVE); PROTEIN,URINE NEGATIVE (NEGATIVE); UROBILINOGEN,URINE 1+ (NORMAL)
[2018-03-19 11:17] LABS: HYPOCHROMASIA SLIGHT; MICROCYTOSIS SLIGHT; PLATELET MORPHOLOGY COMMENT NORMAL (NORMAL)
[2018-03-19 11:25] LABS: APPEARANCE,URINE SLIGHTLY HAZY (CLEAR); COLOR,URINE YELLOW (YELLOW)
[2018-03-19 11:26] LABS: ALANINE AMINOTRANSFERASE 17 Units/L (12-78); ALBUMIN 3.5 g/dL (3.4-5.0); ALKALINE PHOSPHATASE 70 Units/L (46-116); AMYLASE 49 Units/L (25-115); ASPARTATE AMINO TRANSFERASE 12 Units/L (15-37); BLOOD UREA NITROGEN 8 mg/dL (7-18); CALCIUM 8.9 mg/dL (8.5-10.1); CARBON DIOXIDE 27.5 mmol/L (21-32); CHLORIDE 101 mmol/L (98-107); CREATININE 0.71 mg/dL (0.55-1.02); LIPASE 77 Units/L (73-393); SODIUM 137 mmol/L (136-145); TOTAL PROTEIN 8.4 g/dL (6.4-8.2); eGFR BLACK RACES > 60 (>60); eGFR NON BLACK RACES > 60 (>60)
[2018-03-19 11:26] LABS: BACTERIA,URINE NEGATIVE /HPF (NEGATIVE); MUCUS,URINE MODERATE /HPF (NEGATIVE); RBC,URINE NONE SEEN /HPF (NONE SEEN); SQUAMOUS EPITHELIAL CELL,UR MANY /HPF (NEGATIVE); TRANSITIONAL EPI CELLS,URINE MANY /HPF (NEGATIVE)
[2018-03-19] MEDS ORDERED: ZOSYN VIAL 3.375 GM 3.375 GM in NS 100 ML IV + SPIKE MINIBAG* 100 ML IV ONE (12:48)
[2018-03-19] MEDS ORDERED: XYLOCAINE 2 % (PLAIN) ONE (12:51)
[2018-03-19] MEDS ORDERED: ROBINUL ONE (12:51)
[2018-03-19] MEDS ORDERED: ZOFRAN INJ 4 MG VIAL ONE (12:51)
[2018-03-19] MEDS ORDERED: NORCURON INJ 10 MG VIAL ONE (12:51)
[2018-03-19] MEDS ORDERED: DIPRIVAN VIAL ONE (12:51)
[2018-03-19] MEDS ORDERED: VERSED ONE (12:51)
[2018-03-19] MEDS ORDERED: QUELICIN (OR ANECTINE) ONE (12:51)
[2018-03-19] MEDS ORDERED: NEOSTIGMINE INJ ONE ×2 (12:51→13:16)
[2018-03-19] MEDS ORDERED: SUPRANE IN ONE (13:16)
[2018-03-19 13:49] LABS: SERUM PREGNANCY TEST, QUAL NEGATIVE <10 mIU/mL
[2018-03-19] MEDS: ANCEF 1 GM IV PREMIX* 1 GM/50 ML BAG IV ONE ×2 (13:56→15:43)
[2018-03-19] MEDS: LR 1000 ML IV 1,000 ML IV ONE ×2 (13:56→15:45)
[2018-03-19] MEDS ORDERED: NS IRRIGATION 1000 ML 1,000 ML IR ONE ×2 (13:56)
[2018-03-19] MEDS ORDERED: REGLAN INJ 10 MG VIAL IVP PRN (14:58)
[2018-03-19] MEDS ORDERED: PHENERGAN INJ 25 MG IVP PRN (14:58)
[2018-03-19] MEDS ORDERED: ZOFRAN INJ 4 MG VIAL IVP PRN ×2 (14:58→16:43)
[2018-03-19] MEDS ORDERED: BENADRYL INJ 50 MG VIAL IVP PRN (14:58)
[2018-03-19] MEDS ORDERED: FENTANYL INJ 250 mcg ONE (15:02)
[2018-03-19] MEDS ORDERED: DILAUDID INJ IVP PRN (16:43)
[2018-03-19] MEDS: DILAUDID INJ IVP PRN ×2 (16:45→16:53)
[2018-03-19] MEDS ORDERED: DILAUDID INJ ONE (16:45)
[2018-03-19] MEDS: D5 1/2 NS 1000 ML 1,000 ML IV SCH (20:42)
[2018-03-19] MEDS: ANCEF VIAL 1 GM 1 GM in NS 100 ML IV 100 ML IV SCH (21:01)
[2018-03-20] MEDS: D5 1/2 NS 1000 ML 1,000 ML IV SCH (05:12)
[2018-03-20] MEDS: ANCEF VIAL 1 GM 1 GM in NS 100 ML IV 100 ML IV SCH (05:47)
[2018-03-20] MEDS: NS 1000 ML 1,000 ML IV SCH (05:49)
[2018-03-20 06:14] LABS: BASOPHILS % (AUTO) 0.4 % (0.2-1.0); EOSINOPHILS # (AUTO) 0.1 x10^3/uL (0.0-0.2); EOSINOPHILS % (AUTO) 1.1 % (0.9-2.9); HEMATOCRIT 28.1 % (36.0-47.0); LYMPHOCYTES # (AUTO) 1.1 X10^3/uL (1.3-2.9); LYMPHOCYTES % (AUTO) 11.2 % (21.0-51.0); MEAN CORPUSCULAR HEMOGLOBIN 22.4 pg (27.0-34.0); MEAN PLATELET VOLUME 8.3 fL (7.4-11.0); MONOCYTES # (AUTO) 1.2 x10^3/uL (0.3-0.8); MONOCYTES % (AUTO) 12.6 % (0.0-13.0); NEUTROPHILS # (AUTO) 7.2 x10^3/uL (2.2-4.8); NEUTROPHILS % (AUTO) 74.7 % (42.0-75.0); PLATELET COUNT 324 X10^3/uL (150.0-450.0); RED BLOOD COUNT 4.01 X10^6/uL (3.5-5.4); RED CELL DISTRIBUTION WIDTH 15.9 % (11.6-16.5); WHITE BLOOD COUNT 9.6 X10^3/uL (3.6-10.0)
[2018-03-20 06:19] LABS: BLOOD UREA NITROGEN 9 mg/dL (7-18); CALCIUM 8.4 mg/dL (8.5-10.1); CARBON DIOXIDE 25.8 mmol/L (21-32); CHLORIDE 103 mmol/L (98-107); CREATININE 0.73 mg/dL (0.55-1.02); SODIUM 136 mmol/L (136-145); eGFR BLACK RACES > 60 (>60); eGFR NON BLACK RACES > 60 (>60)
[2018-03-20 06:57] LABS: HYPOCHROMASIA 1+; PLATELET MORPHOLOGY COMMENT NORMAL (NORMAL)
[2018-03-20] MEDS ORDERED: NORCO 5/325 MG TAB PO ONE (10:52)
[2018-03-20 12:29] VITALS: BP 115/58
== END 2018-03-20 12:35 | disposition home or self-care (01) | DRG 419 ==
LOC: ER 10:23 → SURG1 13:11 → MED/SURG 17:15
PROVIDERS: ADMIT Internal Medicine; ATTEND Internal Medicine
PROC: 0FT44ZZ Resection of Gallbladder, Percutaneous Endoscopic Approach (ICD-10-PCS; principal; 2018-03-19 14:00)
DX: K80.00 Calculus of gallbladder with acute cholecystitis without obstruction (principal); R10.84 Generalized abdominal pain; D72.828 Other elevated white blood cell count; K66.0 Peritoneal adhesions (postprocedural) (postinfection)
CPT/HCPCS: 36415; 80048; 80053; 81001; 82150; 83690; 83735; 84703; 85025; 96365; 96367; 99284; A4216; A4222; G0378; J0330; J0690; J1170; J2001; J2250; J2405; J2710; J3010; J3490; J7042; J7120

== ENCOUNTER 2019-10-12 19:56 | Inpatient (IN) ==
[2019-10-12] MEDS ORDERED: NS 1000 ML 1,000 ML IV ONE (20:27)
[2019-10-12] MEDS ORDERED: MORPHINE SULFATE INJ 4 MG IVP ONE (20:27)
[2019-10-12] MEDS ORDERED: PHENERGAN INJ 25 MG IM ONE ×2 (20:27→20:31)
[2019-10-12] MEDS ORDERED: NS 1000 ML 1,000 ML ONE (20:31)
--- NOTE | 2019-10-12 20:31 | ED.ABDFE ---
HPI Time Seen Time Seen by Provider: 10/12/19 20:19 PCP Primary Care Physician: NFD Complaint Doctors Chief Complaint Comments: 24yo female presented for abd pain. Pt reports sudden onset of acute generalized abdominal pain that does not radiate. She r eports the pain is 10/10 and crampy. She reports having n/v and chills but denies any dysuria, increase frequency or diarrhea. She was seen a couple weeks ago for similar symptoms and dx with AGE. Chief Complaint:: " MY STOMCH IS HURTING REALLY BAD IT FEELS LIKE A STABBING PAIN AND I KEEP THROWING UP IT STARTED ABOUT 2 TODAY I TOOK A NAP WOKE UP ABOUT 6 AND NOW IT IS WORST." Reviewed Nurses Notes Review: Yes Source History Provided: Patient Mode of arrival Mode of Arrival: Ambulatory Timing Onset of Chief Complaint: 10/12/19 Came on: Suddenly Duration Since Onset: Constant Duration: Hours Location Location: Diffuse Severity Severity: Severe Quality Quality: Cramping and Sharp Context History of: Abdominal surgery Modifying factors Worsening Factors: Nothing Improving Factors: Nothing Associated signs and symptoms Associated Signs and Symptoms: Nausea and Vomiting; denies Diarrhea, Dysuria and Urgency PMH PMH Past Medical History: Yes Past Medical History: Hypertension Past Surgical History: Yes Surgical History: Bowel Resection, , Cholecystectomy and Other Past Surgical History Comment: OPEN HEART SURGERY Family History History of Family Medical Conditions: Yes Family Medical History: Diabetes Mellitus, Cancer and Coronary Artery Disease Social History Type of Tobacco Use: Cigarettes Alcohol Use: None Do you use any recreational Drugs:: No Lives Where: Home infectious screening Have you traveled outside the country in the last 6 months?: No Isolation: Standard ROS Review of Systems Constitutional: Chills; negative Fever and Weakness Eyes: negative Blurred Vision ENTM: negative Nose Congestion Respiratoy: negative Dry Cough and Short of Breath Cardiovascular: negative Chest Pain Gastrointestinal/Abdominal: Abdominal Pain, Nausea and Vomiting; negative Diarrhea Genitourinary: negative Dysuria, Frequency, Hematuria and Bleeding Neurological: negative Weakness Musculoskeletal: negative Back Pain Integumentary: negative Rash Hematologic/Lymphatic: negative Anemia and Lymphadenopathy Endocrine: Decreased Appetite Psychiatric: negative Depression All Other Systems: Reviewed and Negative PE Vital Signs Vitals: Temperature 98.5 F Pulse Rate 76 Respiratory Rate 18 Blood Pressure [Left Arm] 156/90 Blood Pressure 166/111 O2 Sat by Pulse Oximetry 100 General Limitations: No Limitations General Appearance: Alert, In No Apparent Distress and Anxious Head Head Exam: Normal Inspection and Atraumatic Eyes Eye exam: Normal Appearance, PERRL and EOMI; negative Scleral Icterus ENT ENT Exam: Normal Exam, Normal Oropharynx and Mucous Membranes Dry Neck Neck Exam: Normal Inspection and Full ROM; negative Lymphadenopathy Respiratory Respiratory Exam: Normal Lung Sounds Bilat; negative Respiratory Distress Respiratory Exam: Bilateral: Clear to Auscultation Cardiovascular Cardiovascular Exam: Regular Rate and Normal Rhythm Abdominal Exam Abdominal Exam: Normal Inspection, Normal Bowel Sounds, Soft, Tenderness and Guarding; negative Distention, Rebound, Rigidity and Hernia Abdominal Tenderness: Diffuse Back Back Exam: Normal Inspection and Full ROM; negative (R) CVA Tenderness and (L) CVA Tenderness Extremeties Extremities Exam: Normal Inspection, Full ROM and Normal Capillary Refill; negative Edema Neurologic Neurological Exam: Alert, Oriented X3 and Normal Gait; negative Motor Sensory Deficit Psychiatric Psychiatric Exam: Normal Affect and Normal Mood Skin Skin Exam: Warm, Dry, Intact and Normal Color MDM Additional Information Obtained From Additional information provided by: Old Records Differential Diagnosis Differential Diagnosis- Considerations may include:: Bowel Obstruction, Constipation, Gastritus/PUD, Gastroenteritis, Ovarian cyst/torsion, Urinary obstruction, Urinary tract infection and Urolithiasis COURSE Reevaluation 1st: Improved (pt nausea and pain improving. d/w pt labs and imaging results. WIll place NGT and admit for further evaluation.) Consultation Consultation Comments: 21:[address] Selby and will see in hospital. Agreed with NGT. 21:[address] Conley for admission and will see in hospital. Education/Counseling Education/Counseling: Patient, Education and Counseling Educated On: Treatment, Diagnosis, Prognosis and Needs for Follow Up (pcp) ROR Labs Reviewed Laboratory Results Reviewed?: Yes Result Diagrams: 10/12/19 20:35 10/12/19 20:35 Laboratory: WBC 5.2 X10^3/uL (3.6-10.0) 10/12/19 20:35 RBC 4.98 X10^6/uL (3.5-5.4) 10/12/19 20:35 Hgb 11.4 g/dL (12.0-16.0) L 10/12/19 20:35 Hct 35.7 % (36.0-47.0) L 10/12/19 20:35 MCV 71.7 fL (80.0-100.0) L 10/12/19 20:35 MCH 22.9 pg (27.0-34.0) L 10/12/19 20:35 MCHC 32.0 g/dL (33.0-35.0) L 10/12/19 20:35 RDW 18.7 % (11.6-16.5) H 10/12/19 20:35 Plt Count 275 X10^3/uL (150.0-450.0) 10/12/19 20:35 Plt Count Comment Adequate (ADEQUATE) 10/12/19 20:35 MPV 8.9 fL (7.4-11.0) 10/12/19 20:35 Neut % (Auto) 33.8 % (42.0-75.0) L 10/12/19 20:35 Lymph % (Auto) 55.7 % (21.0-51.0) H 10/12/19 20:35 [place] % (Auto) 8.6 % (0.0-13.0) 10/12/19 20:35 Eos % (Auto) 1.1 % (0.9-2.9) 10/12/19 20:35 Baso % (Auto) 0.8 % (0.2-1.0) 10/12/19 20:35 Neut # (Auto) 1.8 x10^3/uL (2.2-4.8) L 10/12/19 20:35 Lymph # (Auto) 2.9 X10^3/uL (1.3-2.9) 10/12/19 20:35 [place] # (Auto) 0.4 x10^3/uL (0.3-0.8) 10/12/19 20:35 Eos # (Auto) 0.1 x10^3/uL (0.0-0.2) 10/12/19 20:35 Baso # (Auto) 0.0 X10^3/uL (0.0-0.1) 10/12/19 20:35 Absolute Nucleated RBC 0.2 /100WBC 10/12/19 20:35 Total Counted 100 10/12/19 20:35 Neutrophils % (Manual) 44 % (39-76) 10/12/19 20:35 Band Neutrophils % 2 % (0-10) 10/12/19 20:35 Lymphocytes % (Manual) 44 % (13-43) H 10/12/19 20:35 Monocytes % (Manual) 8 % (4-9) 10/12/19 20:35 Eosinophils % (Manual) 2 % (0-6) 10/12/19 20:35 Plt Morphology Comment Normal (NORMAL) 10/12/19 20:35 RBC Morphology Abnormal (NORMAL) A 10/12/19 20:35 Hypochromasia 1+ A 10/12/19 20:35 Anisocytosis Slight A 10/12/19 20:35 Target Cells Few 10/12/19 20:35 Ovalocytes Few 10/12/19 20:35 Schistocytes Few 10/12/19 20:35 Sodium 141 mmol/L (136-145) 10/12/19 20:35 Corrected Sodium TNP 10/12/19 20:35 Potassium 3.0 mmol/L (3.5-5.1) L* 10/12/19 20:35 Chloride 103 mmol/L (98-107) 10/12/19 20:35 Carbon Dioxide 27.5 mmol/L (21-32) 10/12/19 20:35 BUN 8 mg/dL (7-18) 10/12/19 20:35 Creatinine 0.87 mg/dL (0.55-1.02) 10/12/19 20:35 Est GFR (MDRD) Af Amer > 60 (>60) 10/12/19 20:35 Est GFR (MDRD) Non-Af > 60 (>60) 10/12/19 20:35 Glucose 91 mg/dL (65-99) 10/12/19 20:35 Calcium 9.4 mg/dL (8.5-10.1) 10/12/19 20:35 Corrected Calcium TNP 10/12/19 20:35 Magnesium 2.0 mg/dL (1.7-2.9) 10/12/19 20:35 Total Bilirubin 0.90 mg/dL (0.2-1.0) 10/12/19 20:35 AST 19 Units/L (15-37) 10/12/19 20:35 ALT 15 Units/L (12-78) 10/12/19 20:35 Alkaline Phosphatase 59 Units/L (46-116) 10/12/19 20:35 Total Protein 8.4 g/dL (6.4-8.2) H 10/12/19 20:35 Albumin 4.4 g/dL (3.4-5.0) 10/12/19 20:35 Globulin 4.0 g/dL (2.5-4.5) 10/12/19 20:35 Albumin/Globulin Ratio 1.1 Ratio (1.1-2.1) 10/12/19 20:35 Lipase 80 Units/L (73-393) 10/12/19 20:35 Other Results Comments: BMP K 3.0 Cr 0.87 LFT wnl Lip 80 Hb 11.4 MCV 71.7 RDW 18 High Mg 2.0, UA and UDS pending CT a/p: moderate to severe dilatation of several loops of small bowel w/ possible transition point in LUQ concern for partial SBO. XRAY XRAY Interpreted by: Radiologist Opioid Opioid Risk Tool Age ([place] box if 16-45): Yes Total: 1 Total Score Risk Category: Low Risk Copyright: [facility] predicting aberrant behaviors Diagnosis Discharge Problem: Partial obstruction of small intestine, Acute hypokalemia SURINDER (iron deficiency anemia) Qualifiers: Iron deficiency anemia type: unspecified iron deficiency Qualified Code(s): D50.9 - Iron deficiency anemia, unspecified Instructions Forms: Excuse From Work Patient Portal ADDITIONAL NOTES Additional Notes Additional Notes: I have personally reviewed your medications, lab results, imaging and time was spent discussion results. Patient educated on their health issue. They verbalized their understanding and agreed with plan of care. Instruction were given to patient at discharge. Condition: Stable Disposition: Admission
[2019-10-12] MEDS ORDERED: MORPHINE SULFATE INJ 4 MG ONE (20:32)
[2019-10-12 20:58] LABS: BASOPHILS % (AUTO) 0.8 % (0.2-1.0); EOSINOPHILS # (AUTO) 0.1 x10^3/uL (0.0-0.2); EOSINOPHILS % (AUTO) 1.1 % (0.9-2.9); HEMATOCRIT 35.7 % (36.0-47.0); HEMOGLOBIN 11.4 g/dL (12.0-16.0); LYMPHOCYTES # (AUTO) 2.9 X10^3/uL (1.3-2.9); LYMPHOCYTES % (AUTO) 55.7 % (21.0-51.0); MEAN CORPUSCULAR HEMOGLOBIN 22.9 pg (27.0-34.0); MEAN CORPUSCULAR VOLUME 71.7 fL (80.0-100.0); MEAN PLATELET VOLUME 8.9 fL (7.4-11.0); MONOCYTES # (AUTO) 0.4 x10^3/uL (0.3-0.8); MONOCYTES % (AUTO) 8.6 % (0.0-13.0); NEUTROPHILS # (AUTO) 1.8 x10^3/uL (2.2-4.8); NEUTROPHILS % (AUTO) 33.8 % (42.0-75.0); PLATELET COUNT 275 X10^3/uL (150.0-450.0); RED BLOOD COUNT 4.98 X10^6/uL (3.5-5.4); RED CELL DISTRIBUTION WIDTH 18.7 % (11.6-16.5); WHITE BLOOD COUNT 5.2 X10^3/uL (3.6-10.0)
[2019-10-12 21:01] LABS: ALANINE AMINOTRANSFERASE 15 Units/L (12-78); ALBUMIN 4.4 g/dL (3.4-5.0); ALKALINE PHOSPHATASE 59 Units/L (46-116); ASPARTATE AMINO TRANSFERASE 19 Units/L (15-37); BLOOD UREA NITROGEN 8 mg/dL (7-18); CALCIUM 9.4 mg/dL (8.5-10.1); CARBON DIOXIDE 27.5 mmol/L (21-32); CHLORIDE 103 mmol/L (98-107); CREATININE 0.87 mg/dL (0.55-1.02); LIPASE 80 Units/L (73-393); SODIUM 141 mmol/L (136-145); TOTAL PROTEIN 8.4 g/dL (6.4-8.2); eGFR NON BLACK RACES > 60 (>60)
[2019-10-12 21:22] LABS: BAND NEUTROPHILS % 2 % (0-10); HYPOCHROMASIA 1+; PLATELET MORPHOLOGY COMMENT NORMAL (NORMAL)
[2019-10-12 21:24] LABS: ANISOCYTOSIS SLIGHT
[2019-10-12 21:25] LABS: OVALOCYTES FEW; SCHISTOCYTES FEW
[2019-10-12 21:26] LABS: TARGET CELLS FEW
--- NOTE | 2019-10-12 21:27 | CT ---
STUDY: CT ABDOMEN AND PELVIS WITHOUT IV AND ORAL CONTRAST HISTORY: Abdominal pain. Vomiting. Comparison: Radiographs from October 01, 2019. CT from March 09, 2018. Technique: Multiple axial images of the abdomen and pelvis were obtained from the lung bases to the pubic symphysis without the administration of IV contrast. Findings: Examination is limited due to the lack of oral or IV contrast. The visualized portions of the lung bases are unremarkable. CT abdomen: The gallbladder surgically absent. Surgical clips are noted in the gallbladder fossa. The liver, spleen, pancreas, kidneys, and adrenal glands are normal in appearance. No significant mesenteric lymphadenopathy or inflammatory stranding is appreciated. The stomach is normal in appearance. There is moderate to severe distention of several loops of small bowel in the left hemiabdomen and in the upper pelvis within the midline. There may be a transition point in the left upper quadrant on axial images 45-47. The terminal ileum and cecum are normal. A structure thought to represent the appendix appears to be within normal limits. The ascending, transverse, and descending colon appear to be within normal limits. CT pelvis: The sigmoid colon is normal in appearance. The rectum is normal. The urinary bladder is normal. No abnormal fluid collections are identified in the pelvis. There is no evidence of acute osseous abnormality. IMPRESSION: 1. Limited CT examination of the abdomen and pelvis, due to the lack of oral or IV contrast. 2. Moderate to severe dilatation of several loops of small bowel as described, with possible transition point in the left upper quadrant. These findings raise concern for the possibility of partial small bowel obstruction. A dedicated CT examination following administration of oral and IV contrast may be helpful to delineate the point of obstruction. Reported By:
[2019-10-12] MEDS ORDERED: PHENERGAN INJ 25 MG IM PRN (21:49)
[2019-10-12] MEDS ORDERED: D5 1/2 NS + KCL 20 MEQ/L 1,000 ML IV SCH (22:00)
--- NOTE | 2019-10-12 22:27 | RAD ---
History: Pain Exam: KUB Comparison: 03/09/2018 Technique: A supine view of the abdomen was obtained. Findings: There is a nasogastric tube in place the tip along the body of the stomach. The gas pattern is unremarkable. Surgical clips are seen along the right upper quadrant. There is no free air. The bones are intact. IMPRESSION: Status post nasogastric tube placement into the body of the stomach with a nonspecific gas pattern. Status post cholecystectomy Reported By:
[2019-10-12 23:50] VITALS: BMI 21.5
[2019-10-13 05:16] LABS: BLOOD UREA NITROGEN 8 mg/dL (7-18); CALCIUM 8.6 mg/dL (8.5-10.1); CARBON DIOXIDE 24.3 mmol/L (21-32); CHLORIDE 105 mmol/L (98-107); CREATININE 0.65 mg/dL (0.55-1.02); SODIUM 141 mmol/L (136-145); eGFR NON BLACK RACES > 60 (>60)
[2019-10-13 05:21] LABS: BASOPHILS % (AUTO) 0.8 % (0.2-1.0); EOSINOPHILS # (AUTO) 0.1 x10^3/uL (0.0-0.2); HEMATOCRIT 32.6 % (36.0-47.0); HEMOGLOBIN 10.3 g/dL (12.0-16.0); LYMPHOCYTES # (AUTO) 1.6 X10^3/uL (1.3-2.9); LYMPHOCYTES % (AUTO) 28.3 % (21.0-51.0); MEAN CORPUSCULAR HEMOGLOBIN 22.9 pg (27.0-34.0); MEAN CORPUSCULAR HGB CONC 31.7 g/dL (33.0-35.0); MEAN CORPUSCULAR VOLUME 72.3 fL (80.0-100.0); MEAN PLATELET VOLUME 9.3 fL (7.4-11.0); MONOCYTES # (AUTO) 0.7 x10^3/uL (0.3-0.8); MONOCYTES % (AUTO) 12.8 % (0.0-13.0); NEUTROPHILS # (AUTO) 3.2 x10^3/uL (2.2-4.8); NEUTROPHILS % (AUTO) 57.1 % (42.0-75.0); PLATELET COUNT 237 X10^3/uL (150.0-450.0); RED CELL DISTRIBUTION WIDTH 18.5 % (11.6-16.5); WHITE BLOOD COUNT 5.7 X10^3/uL (3.6-10.0)
[2019-10-13 05:56] LABS: ANISOCYTOSIS SLIGHT; HYPOCHROMASIA 1+; PLATELET MORPHOLOGY COMMENT NORMAL (NORMAL); TARGET CELLS PRESENT
[2019-10-13 05:57] LABS: OVALOCYTES PRESENT
[2019-10-13] MEDS: D5 1/2 NS 1000 ML 1,000 ML IV SCH ×4 (10:24→23:05)
[2019-10-13] MEDS: PROTONIX INJ 40 MG VIAL IVP SCH (10:25)
--- NOTE | 2019-10-13 11:42 | RAD ---
History: Pain Exam: KUB Comparison: 03/09/2018 Technique: A supine view the abdomen was obtained. Findings: The gas pattern is unremarkable. No renal stones are seen. There are surgical clips along the right upper quadrant. There is mild scoliosis. The bones are intact. IMPRESSION: Nonspecific gas pattern. Surgical clips along the right upper quadrant. Reported By:
--- NOTE | 2019-10-13 11:56 | DR.H&P ---
H&P - History & Physical for Day of: H&P Date: 10/13/19 - Chief Complaint Chief Complaint: ABDOMINAL PAIN - History of Present Illness History of Present Illness: IS A 24 YEAR OLD BLACK FEMALE WHO PRESENTED TO THE ER WITH COMPLAINTS OF SHARP, STABBING ABDOMINAL PAIN, NAUSEA, AND VOMITING. PAIN REPORTEDLY STARTED EARLIER IN THE DAY ON 10/12 AND HAD PROGRESSIVELY GOTTEN WORSE. SHE DENIED DYSURIA, FREQUENCY, OR DIARRHEA. ON ARRIVAL, VITALS WERE 98.5-76-18-100%-156/90. LABS WERE OBTAINED. ABNORMAL LAB VALUES INCLUDE THE FOLLOWING: HGB 11.4, HCT 35.7, POTASSIUM 3.0, TOTAL PROTEIN 8.4, IRON 36, TRANSFERRIN 379, FERRITIN 5. AN ABDOMEN/PELVIS CT WITHOUT CONTRAST WAS OBTAINED NAD REVEALED: Limited CT examination of the abdomen and pelvis, due to the lack of oral or IV contrast. Moderate to severe dilatation of several loops of small bowel as described, with possible transition point in the left upper quadrant. These findings raise concern for the possibility of partial small bowel obstruction. A dedicated CT examination following administration of oral and IV contrast may be helpful to delineate the point of obstruction. AN NG TUBE WAS INSERTED IN THE ER. SHE WAS GIVEN MORPHINE 4MG IV X 1, PHENERGAN 25MG IM X 1, AND A NORMAL SALINE BOLUS IN THE ER. SHE WAS ADMITTED FOR FURTHER EVALUATION AND TREATMENT OF A PARTIAL SBO AND HYPOKALEMIA. SHE WAS GIBEN A LITER OF D51/2NS WITH 20MEQ KCL AT 80ML/HR AND STARTED ON PROTONIX 40MG IV DAILY AND PHENERGAN 25MG IM Q6H PRN. WE WILL FOLLOW UP WITH AM LABS AND KUB AND CONTINUE TO MONITOR. - Past Medical History Past Medical History: Hypertension - Past Surgical History Surgical History: Bowel Resection, , CABG/Valve Surgery, Cholecystectomy, Other - Family History Family Medical History: Diabetes Mellitus, Cancer, Coronary Artery Disease - Social History Does patient currently use any type of tobacco product: Yes Have you used tobacco products in the last 12 months: Yes Type of Tobacco Use: Cigarettes Alcohol Use: None Drug Use: None Prescription drug monitoring program results: PDMP was not reviewed - Medications Home Medications: iodine Allergy (Verified 10/01/19 01:04) shrimp Allergy (Verified 10/01/19 01:04) - Review of Systems Constitutional: See HPI Eyes: No Symptoms Reported ENT: No Symptoms Reported Respiratory: No Symptoms Reported Cardiovascular: No Symptoms Reported Gastrointestinal: See HPI, Nausea, Vomiting, Abdominal Pain Genitourinary: No Symptoms Reported Musculoskeletal: No Symptoms Reported Skin: No Symptoms Reported Neurological: No Symptoms Reported - Physical Exam Vital Signs: Temperature 99.6 F Pulse Rate [Right Brachial] 62 Pulse Rate 76 Respiratory Rate 20 Blood Pressure [Right Arm] 125/85 Blood Pressure [Left Arm] 148/87 Blood Pressure 166/111 O2 Sat by Pulse Oximetry 100 Oriented: Normal Eyes: Normal Ear: Normal Nose: Normal Throat: Normal Respiratory: Clear Throughout Cardiovascular: Normal. negative: S3, S4, Murmur : Normal Auscultation: Bowel Sounds: Normal Palpation: Normal Tenderness: Diffuse, Moderate. negative: Rebound, Guarding, Rigidity Skin: Normal Musculoskeletal: Normal Psychiatric: Normal Mood Description: Calm Affect: Normal Speech Pattern: Clear - Assessment/Plan (1) Partial obstruction of small intestine Status: Acute Plan: NG TUBE, SURGICAL CONSULT, CONTINUE TO MONITOR (2) Acute hypokalemia Status: Acute (3) SURINDER (iron deficiency anemia) Qualifiers: Iron deficiency anemia type: unspecified iron deficiency Qualified Code(s): D50.9 - Iron deficiency anemia, unspecified Status: Acute - Allergies Allergies/Adverse Reactions: Allergies Allergy/AdvReac Type Severity Reaction Status Date / Time iodine Allergy Verified 10/01/19 01:04 shrimp Allergy Verified 10/01/19 01:04
[2019-10-13 19:16] LABS: BILIRUBIN,URINE NEGATIVE (NEGATIVE); BLOOD/HEMOGLOBIN,URINE NEGATIVE (NEGATIVE); GLUCOSE, URINE NEGATIVE (NEGATIVE); KETONES,URINE NEGATIVE (NEGATIVE); LEUKOCYTE ESTERASE ,URINE 3+ (NEGATIVE); NITRITES,URINE NEGATIVE (NEGATIVE); PROTEIN,URINE NEGATIVE (NEGATIVE); UROBILINOGEN,URINE NORMAL (NORMAL)
[2019-10-13 19:19] LABS: APPEARANCE,URINE HAZY (CLEAR); COLOR,URINE YELLOW (YELLOW)
[2019-10-13 19:24] LABS: BACTERIA,URINE 1+ /HPF (NEGATIVE); RBC,URINE 0-2 /HPF (0-3); SQUAMOUS EPITHELIAL CELL,UR FEW /HPF (NEGATIVE)
[2019-10-13 19:25] LABS: TRICHOMONAS,URINE FEW /HPF (NEGATIVE)
[2019-10-14] MEDS: D5 1/2 NS 1000 ML 1,000 ML IV SCH ×4 (02:00→21:55)
[2019-10-14 04:53] LABS: BASOPHILS % (AUTO) 0.8 % (0.2-1.0); EOSINOPHILS # (AUTO) 0.1 x10^3/uL (0.0-0.2); EOSINOPHILS % (AUTO) 1.8 % (0.9-2.9); HEMATOCRIT 32.8 % (36.0-47.0); HEMOGLOBIN 10.2 g/dL (12.0-16.0); LYMPHOCYTES % (AUTO) 41.8 % (21.0-51.0); MEAN CORPUSCULAR HEMOGLOBIN 22.8 pg (27.0-34.0); MEAN CORPUSCULAR HGB CONC 31.2 g/dL (33.0-35.0); MEAN CORPUSCULAR VOLUME 73.1 fL (80.0-100.0); MEAN PLATELET VOLUME 8.7 fL (7.4-11.0); MONOCYTES # (AUTO) 0.6 x10^3/uL (0.3-0.8); MONOCYTES % (AUTO) 11.7 % (0.0-13.0); NEUTROPHILS # (AUTO) 2.1 x10^3/uL (2.2-4.8); NEUTROPHILS % (AUTO) 43.9 % (42.0-75.0); PLATELET COUNT 221 X10^3/uL (150.0-450.0); RED BLOOD COUNT 4.49 X10^6/uL (3.5-5.4); RED CELL DISTRIBUTION WIDTH 18.7 % (11.6-16.5); WHITE BLOOD COUNT 4.9 X10^3/uL (3.6-10.0)
[2019-10-14 05:05] LABS: ALANINE AMINOTRANSFERASE 16 Units/L (12-78); ALBUMIN 3.3 g/dL (3.4-5.0); ALKALINE PHOSPHATASE 47 Units/L (46-116); ASPARTATE AMINO TRANSFERASE 19 Units/L (15-37); BLOOD UREA NITROGEN 4 mg/dL (7-18); CALCIUM 7.9 mg/dL (8.5-10.1); CARBON DIOXIDE 27.1 mmol/L (21-32); CHLORIDE 107 mmol/L (98-107); COR CA(FOR HYPOALB) 8.5 mg/dL (8.5-10.1); SODIUM 141 mmol/L (136-145); TOTAL PROTEIN 6.7 g/dL (6.4-8.2); eGFR NON BLACK RACES > 60 (>60)
[2019-10-14] MEDS ORDERED: MICRO K EXTEN CAP 10 MEQ PO PRN (05:33)
[2019-10-14] MEDS ORDERED: KLOR-CON PO PRN (05:33)
[2019-10-14] MEDS ORDERED: K-DUR TAB 20 MEQ PO PRN (05:33)
[2019-10-14] MEDS ORDERED: POTASSIUM CHL 60 MEQ/NS 0.45% 500 ML IV PRN (05:33)
[2019-10-14] MEDS ORDERED: POTASSIUM CHLORIDE LIQ 20 MEQ UDC PO PRN (05:33)
[2019-10-14] MEDS ORDERED: K-RIDER 10 MEQ/NS 100 ML 10 MEQ/100 ML BAG IV PRN (05:33)
[2019-10-14] MEDS ORDERED: POTASSIUM CHL 40 MEQ/NS 0.45% 500 ML IV PRN (05:33)
[2019-10-14] MEDS ORDERED: K-DUR TAB 20 MEQ PO ONE (05:42)
[2019-10-14 05:53] LABS: PLATELET MORPHOLOGY COMMENT NORMAL (NORMAL)
[2019-10-14 05:54] LABS: ANISOCYTOSIS SLIGHT; HYPOCHROMASIA 1+; TARGET CELLS PRESENT
[2019-10-14] MEDS: PROTONIX INJ 40 MG VIAL IVP SCH (09:19)
--- NOTE | 2019-10-14 10:01 | RAD ---
History: Abdominal pain Study: KUB Comparison: Yesterday Findings: There is nondistended gas in transverse colon. There is mild thickening and nodularity of proximal jejunum without abnormal gaseous distention. There is no free air demonstrated. There are cholecystectomy clips. There is levoscoliosis of the lumbar spine with L3-4 degenerative osteophytes left laterally. Impression: Nonspecific thickening of folds of proximal jejunum that may reflect a gastroenteritis. No definite evidence for obstruction. Reported By:
--- NOTE | 2019-10-14 10:45 | DR.PROGNOT ---
Hospital Progress Notes - Progress Note for Day of: Progress Note Date: 10/14/19 - Chief Complaint Chief Complaint: less abdominal pain . no nausea , no vomiting . last abdominal xray showed no bowel obstruction . pt is hungry now . CBC normal . - Past Medical Family Social History Past Med/Fam/Surg Hx: No changes since H&P Allergies: Allergies iodine Allergy (Verified 10/01/19 01:04) shrimp Allergy (Verified 10/01/19 01:04) - Review Of Systems ROS: No change since H&P - Vital Signs Vital Signs: Temperature 99.0 F Pulse Rate [Right Brachial] 54 Pulse Rate 76 Respiratory Rate 18 Blood Pressure [Right Arm] 125/68 Blood Pressure [Left Arm] 148/87 Blood Pressure 166/111 O2 Sat by Pulse Oximetry 100 - Physical Exam Oriented: Normal Eyes: Normal Ear: Normal Nose: Normal Throat: Normal Respiratory: Normal Cardiovascular: Normal. negative: S3, S4, Murmur : Normal GI:Auscultation: Normal GI:Palpation: Normal GI: Tenderness: Diffuse, Moderate (soft abdomen with karel umbilical tenderness , BS+). negative: Rebound, Guarding, Rigidity Skin: Normal Musculoskeletal: Normal Psychiatric: Normal Mood Description: Calm Affect: Normal Speech Pattern: Clear - Laboratory and Diagnostics Result Diagrams: 10/14/19 04:30 10/14/19 08:57 Labs: 10/13/19 18:52 Urine,Clean Catch Urine Culture - Preliminary Laboratory WBC 4.9 X10^3/uL (3.6-10.0) 10/14/19 04:30 RBC 4.49 X10^6/uL (3.5-5.4) 10/14/19 04:30 Hgb 10.2 g/dL (12.0-16.0) L 10/14/19 04:30 Hct 32.8 % (36.0-47.0) L 10/14/19 04:30 MCV 73.1 fL (80.0-100.0) L 10/14/19 04:30 MCH 22.8 pg (27.0-34.0) L 10/14/19 04:30 MCHC 31.2 g/dL (33.0-35.0) L 10/14/19 04:30 RDW 18.7 % (11.6-16.5) H 10/14/19 04:30 Plt Count 221 X10^3/uL (150.0-450.0) 10/14/19 04:30 Plt Count Comment Adequate (ADEQUATE) 10/14/19 04:30 MPV 8.7 fL (7.4-11.0) 10/14/19 04:30 Neut % (Auto) 43.9 % (42.0-75.0) 10/14/19 04:30 Lymph % (Auto) 41.8 % (21.0-51.0) 10/14/19 04:30 [place]ake % (Auto) 11.7 % (0.0-13.0) 10/14/19 04:30 Eos % (Auto) 1.8 % (0.9-2.9) 10/14/19 04:30 Baso % (Auto) 0.8 % (0.2-1.0) 10/14/19 04:30 Neut # (Auto) 2.1 x10^3/uL (2.2-4.8) L 10/14/19 04:30 Lymph # (Auto) 2.0 X10^3/uL (1.3-2.9) 10/14/19 04:30 [place] # (Auto) 0.6 x10^3/uL (0.3-0.8) 10/14/19 04:30 Eos # (Auto) 0.1 x10^3/uL (0.0-0.2) 10/14/19 04:30 Baso # (Auto) 0.0 X10^3/uL (0.0-0.1) 10/14/19 04:30 Absolute Nucleated RBC 0.3 /100WBC 10/14/19 04:30 Total Counted 100 10/12/19 20:35 Neutrophils % (Manual) 44 % (39-76) 10/12/19 20:35 Band Neutrophils % 2 % (0-10) 10/12/19 20:35 Lymphocytes % (Manual) 44 % (13-43) H 10/12/19 20:35 Monocytes % (Manual) 8 % (4-9) 10/12/19 20:35 Eosinophils % (Manual) 2 % (0-6) 10/12/19 20:35 Plt Morphology Comment Normal (NORMAL) 10/14/19 04:30 RBC Morphology Abnormal (NORMAL) A 10/14/19 04:30 Hypochromasia 1+ A 10/14/19 04:30 Anisocytosis Slight A 10/14/19 04:30 Target Cells Present 10/14/19 04:30 Ovalocytes Present 10/13/19 04:26 Schistocytes Few 10/12/19 20:35 Sodium 141 mmol/L (136-145) 10/14/19 04:30 Corrected Sodium TNP 10/14/19 04:30 Potassium 3.4 mmol/L (3.5-5.1) L 10/14/19 08:57 Chloride 107 mmol/L (98-107) 10/14/19 04:30 Carbon Dioxide 27.1 mmol/L (21-32) 10/14/19 04:30 BUN 4 mg/dL (7-18) L 10/14/19 04:30 Creatinine 0.70 mg/dL (0.55-1.02) 10/14/19 04:30 Est GFR (MDRD) Af Amer > 60 (>60) 10/14/19 04:30 Est GFR (MDRD) Non-Af > 60 (>60) 10/14/19 04:30 Glucose 88 mg/dL (65-99) 10/14/19 04:30 Calcium 7.9 mg/dL (8.5-10.1) L 10/14/19 04:30 Corrected Calcium 8.5 mg/dL (8.5-10.1) 10/14/19 04:30 Magnesium 1.8 mg/dL (1.7-2.9) 10/14/19 04:30 Iron 36 ug/dL (50-175) L 10/12/19 20:35 Transferrin 379 mg/dL (202-364) H 10/12/19 20:35 Ferritin 5 ng/mL (8-252) L 10/12/19 20:35 Total Bilirubin 0.90 mg/dL (0.2-1.0) 10/14/19 04:30 AST 19 Units/L (15-37) 10/14/19 04:30 ALT 16 Units/L (12-78) 10/14/19 04:30 Alkaline Phosphatase 47 Units/L (46-116) 10/14/19 04:30 Total Protein 6.7 g/dL (6.4-8.2) 10/14/19 04:30 Albumin 3.3 g/dL (3.4-5.0) L 10/14/19 04:30 Globulin 3.4 g/dL (2.5-4.5) 10/14/19 04:30 Albumin/Globulin Ratio 1.0 Ratio (1.1-2.1) L 10/14/19 04:30 Lipase 80 Units/L (73-393) 10/12/19 20:35 Vitamin B12 776 pg/mL (193-986) 10/12/19 20:35 Folate 11.7 ng/mL (>8.6) 10/12/19 20:35 Specimen Type Clean catch urine 10/13/19 18:52 Urine Color Yellow (YELLOW) 10/13/19 18:52 Urine Appearance Hazy (CLEAR) 10/13/19 18:52 Urine pH 7.0 (5.0 - 8.0) 10/13/19 18:52 Ur Specific [place] 1.010 (1.000-1.030) 10/13/19 18:52 Urine Protein Negative (NEGATIVE) 10/13/19 18:52 Urine Glucose (UA) Negative (NEGATIVE) 10/13/19 18:52 Urine Ketones Negative (NEGATIVE) 10/13/19 18:52 Urine Occult Blood Negative (NEGATIVE) 10/13/19 18:52 Urine Nitrite Negative (NEGATIVE) 10/13/19 18:52 Urine Bilirubin Negative (NEGATIVE) 10/13/19 18:52 Urine Urobilinogen Normal (NORMAL) 10/13/19 18:52 Ur Leukocyte Esterase 3+ (NEGATIVE) 10/13/19 18:52 Urine RBC 0-2 /HPF (0-3) 10/13/19 18:52 Urine WBC 10-20 /HPF (0-5) A 10/13/19 18:52 Ur Squamous Epith Cells Few /HPF (NEGATIVE) 10/13/19 18:52 Urine Bacteria 1+ /HPF (NEGATIVE) 10/13/19 18:52 Urine Trichomonas Few /HPF (NEGATIVE) 10/13/19 18:52 Ur Culture Indicated? Yes/culture set up 10/13/19 18:52 Urine Opiates Screen Negative (NEG=<300) 10/13/19 18:52 Urine Methadone Screen Negative (NEG=<300) 10/13/19 18:52 Ur Barbiturates Screen Negative (NEG=<200) 10/13/19 18:52 Ur Phencyclidine Scrn Negative (NEG=<25) 10/13/19 18:52 Ur Amphetamines Screen Negative (NEG=<1000) 10/13/19 18:52 U Benzodiazepines Scrn Negative (NEG=<200) 10/13/19 18:52 Urine Cocaine Screen Negative (NEG=<300) 10/13/19 18:52 U Marijuana (THC) Screen Positive (NEG=<50) A 10/13/19 18:52 - Assessment and Plan 1: subsiding SBO from intra abdominal adhesions .. to advance diet and repeat abdominal xray today . maybe d/c in am . - Problem Patient Problems: Patient Problems Partial obstruction of small intestine (Acute) K56.600 Acute hypokalemia (Acute) E87.6 SURINDER (iron deficiency anemia) (Acute) D50.9
[2019-10-14] MEDS ORDERED: NORCO 5/325 MG TAB PO PRN (12:42)
[2019-10-14] MEDS ORDERED: NORCO 5/325 MG TAB ONE (12:57)
[2019-10-14] MEDS: ROCEPHIN VIAL 1 GRAM 1 G in NS 100 ML IV + SPIKE MINIBAG* 100 ML IV SCH (14:20)
--- NOTE | 2019-10-14 21:24 | PCM.PROG ---
Progress Note - Progress Note for Day of Date of Exam: 10/14/19 - Subjective Subjective: WAS ADMITTED FOR A PARTIAL SMALL BOWEL OBSTRUCTION AND HYPOKALEMIA. TODAY, SHE IS ALERT AND ORIENTED, LYING IN BED ON MORNING ROUNDS. NG TUBE WAS REMOVED YESTERDAY. SHE CONTINUES WITH MILD ABDOMINAL PAIN TODAY WELL NAUSEA AT TIMES. HER VITALS THIS MORNING ARE: 99.0-59-18-100%-118/72. LABS WERE OBTAINED. ABNORMAL LAB VALUES INCLUDE THE FOLLOWING: HGB 10.2, HCT 32.8, POTASSIUM 3.1, BUN 4, CALCLIUM 7.9, ALBUMIN 3.3. A URINALYSIS WAS OBTAINED LAST NIGHT AND REVEALED: WBC 10-20, RBC 0-2, BACTERIA 1+, LEUKOCYTES 3+. TOXICOLOGY WAS POSITIVE FOR MARIJUANA. A URINE CULTURE IS PENDING. A KUB WAS OBTAINED THIS MORNING AND REVEALED: Nonspecific thickening of folds of proximal jejunum that may reflect a gastroenteritis. No definite evidence for obstruction. WE SPOKE WITH , GENERAL SURGEON THIS MORNING CONCERNING PATIENTS STATUS. HE PLANS TO ADVANCE HER DIET AND CONTINUE TO MONITOR. WE ARE IN AGREEMENT WITH PLAN. WE WILL START ROCEPHIN 1G IV DAILY FOR A UTI. OTHERWISE, WE WILL FOLLOW UP WITH AM LABS AND CONTINUE TO MONITOR. - Past Medical Family Social History Past Med/Fam/Surg Hx: No changes since H&P Allergies: Allergies iodine Allergy (Verified 10/01/19 01:04) shrimp Allergy (Verified 10/01/19 01:04) - Review of Systems ROS: No change since H&P - Vital Signs and I&O's Vital Signs: Temperature 98.2 F Pulse Rate [Right Brachial] 82 Pulse Rate 76 Respiratory Rate 18 Blood Pressure [Right Arm] 118/72 Blood Pressure [Left Arm] 148/87 Blood Pressure 166/111 O2 Sat by Pulse Oximetry 100 Intake and Output: Intake & Output 10/12/19 10/13/19 10/14/19 10/15/19 11:59 11:59 11:59 11:59 Intake Total 480 / 480 2860 / 2860 720 / 720 Output Total 500 / 500 / Balance -20 / -20 2859 / 2859 720 / 720 - Physical Exam Oriented: Normal Eyes: Normal Ear: Normal Nose: Normal Throat: Normal Respiratory: Normal Cardiovascular: Normal. negative: S3, S4, Murmur : Normal Auscultation: Bowel Sounds: Normal Palpation: Normal Tenderness: Diffuse, Mild. negative: Rebound, Guarding, Rigidity Skin: Normal Musculoskeletal: Normal Psychiatric: Normal Mood Description: Calm Affect: Normal Speech Pattern: Clear, Appropriate - Laboratory and Diagnostics Result Diagrams: 10/14/19 04:30 10/14/19 08:57 Labs: 10/13/19 18:52 Urine,Clean Catch Urine Culture - Preliminary Laboratory WBC 4.9 X10^3/uL (3.6-10.0) 10/14/19 04:30 RBC 4.49 X10^6/uL (3.5-5.4) 10/14/19 04:30 Hgb 10.2 g/dL (12.0-16.0) L 10/14/19 04:30 Hct 32.8 % (36.0-47.0) L 10/14/19 04:30 MCV 73.1 fL (80.0-100.0) L 10/14/19 04:30 MCH 22.8 pg (27.0-34.0) L 10/14/19 04:30 MCHC 31.2 g/dL (33.0-35.0) L 10/14/19 04:30 RDW 18.7 % (11.6-16.5) H 10/14/19 04:30 Plt Count 221 X10^3/uL (150.0-450.0) 10/14/19 04:30 Plt Count Comment Adequate (ADEQUATE) 10/14/19 04:30 MPV 8.7 fL (7.4-11.0) 10/14/19 04:30 Neut % (Auto) 43.9 % (42.0-75.0) 10/14/19 04:30 Lymph % (Auto) 41.8 % (21.0-51.0) 10/14/19 04:30 [place] % (Auto) 11.7 % (0.0-13.0) 10/14/19 04:30 Eos % (Auto) 1.8 % (0.9-2.9) 10/14/19 04:30 Baso % (Auto) 0.8 % (0.2-1.0) 10/14/19 04:30 Neut # (Auto) 2.1 x10^3/uL (2.2-4.8) L 10/14/19 04:30 Lymph # (Auto) 2.0 X10^3/uL (1.3-2.9) 10/14/19 04:30 [place] # (Auto) 0.6 x10^3/uL (0.3-0.8) 10/14/19 04:30 Eos # (Auto) 0.1 x10^3/uL (0.0-0.2) 10/14/19 04:30 Baso # (Auto) 0.0 X10^3/uL (0.0-0.1) 10/14/19 04:30 Absolute Nucleated RBC 0.3 /100WBC 10/14/19 04:30 Total Counted 100 10/12/19 20:35 Neutrophils % (Manual) 44 % (39-76) 10/12/19 20:35 Band Neutrophils % 2 % (0-10) 10/12/19 20:35 Lymphocytes % (Manual) 44 % (13-43) H 10/12/19 20:35 Monocytes % (Manual) 8 % (4-9) 10/12/19 20:35 Eosinophils % (Manual) 2 % (0-6) 10/12/19 20:35 Plt Morphology Comment Normal (NORMAL) 10/14/19 04:30 RBC Morphology Abnormal (NORMAL) A 10/14/19 04:30 Hypochromasia 1+ A 10/14/19 04:30 Anisocytosis Slight A 10/14/19 04:30 Target Cells Present 10/14/19 04:30 Ovalocytes Present 10/13/19 04:26 Schistocytes Few 10/12/19 20:35 Sodium 141 mmol/L (136-145) 10/14/19 04:30 Corrected Sodium TNP 10/14/19 04:30 Potassium 3.4 mmol/L (3.5-5.1) L 10/14/19 08:57 Chloride 107 mmol/L (98-107) 10/14/19 04:30 Carbon Dioxide 27.1 mmol/L (21-32) 10/14/19 04:30 BUN 4 mg/dL (7-18) L 10/14/19 04:30 Creatinine 0.70 mg/dL (0.55-1.02) 10/14/19 04:30 Est GFR (MDRD) Af Amer > 60 (>60) 10/14/19 04:30 Est GFR (MDRD) Non-Af > 60 (>60) 10/14/19 04:30 Glucose 88 mg/dL (65-99) 10/14/19 04:30 Calcium 7.9 mg/dL (8.5-10.1) L 10/14/19 04:30 Corrected Calcium 8.5 mg/dL (8.5-10.1) 10/14/19 04:30 Magnesium 1.8 mg/dL (1.7-2.9) 10/14/19 04:30 Iron 36 ug/dL (50-175) L 10/12/19 20:35 Transferrin 379 mg/dL (202-364) H 10/12/19 20:35 Ferritin 5 ng/mL (8-252) L 10/12/19 20:35 Total Bilirubin 0.90 mg/dL (0.2-1.0) 10/14/19 04:30 AST 19 Units/L (15-37) 10/14/19 04:30 ALT 16 Units/L (12-78) 10/14/19 04:30 Alkaline Phosphatase 47 Units/L (46-116) 10/14/19 04:30 Total Protein 6.7 g/dL (6.4-8.2) 10/14/19 04:30 Albumin 3.3 g/dL (3.4-5.0) L 10/14/19 04:30 Globulin 3.4 g/dL (2.5-4.5) 10/14/19 04:30 Albumin/Globulin Ratio 1.0 Ratio (1.1-2.1) L 10/14/19 04:30 Lipase 80 Units/L (73-393) 10/12/19 20:35 Vitamin B12 776 pg/mL (193-986) 10/12/19 20:35 Folate 11.7 ng/mL (>8.6) 10/12/19 20:35 Specimen Type Clean catch urine 10/13/19 18:52 Urine Color Yellow (YELLOW) 10/13/19 18:52 Urine Appearance Hazy (CLEAR) 10/13/19 18:52 Urine pH 7.0 (5.0 - 8.0) 10/13/19 18:52 Ur Specific [place] 1.010 (1.000-1.030) 10/13/19 18:52 Urine Protein Negative (NEGATIVE) 10/13/19 18:52 Urine Glucose (UA) Negative (NEGATIVE) 10/13/19 18:52 Urine Ketones Negative (NEGATIVE) 10/13/19 18:52 Urine Occult Blood Negative (NEGATIVE) 10/13/19 18:52 Urine Nitrite Negative (NEGATIVE) 10/13/19 18:52 Urine Bilirubin Negative (NEGATIVE) 10/13/19 18:52 Urine Urobilinogen Normal (NORMAL) 10/13/19 18:52 Ur Leukocyte Esterase 3+ (NEGATIVE) 10/13/19 18:52 Urine RBC 0-2 /HPF (0-3) 10/13/19 18:52 Urine WBC 10-20 /HPF (0-5) A 10/13/19 18:52 Ur Squamous Epith Cells Few /HPF (NEGATIVE) 10/13/19 18:52 Urine Bacteria 1+ /HPF (NEGATIVE) 10/13/19 18:52 Urine Trichomonas Few /HPF (NEGATIVE) 10/13/19 18:52 Ur Culture Indicated? Yes/culture set up 10/13/19 18:52 Urine Opiates Screen Negative (NEG=<300) 10/13/19 18:52 Urine Methadone Screen Negative (NEG=<300) 10/13/19 18:52 Ur Barbiturates Screen Negative (NEG=<200) 10/13/19 18:52 Ur Phencyclidine Scrn Negative (NEG=<25) 10/13/19 18:52 Ur Amphetamines Screen Negative (NEG=<1000) 10/13/19 18:52 U Benzodiazepines Scrn Negative (NEG=<200) 10/13/19 18:52 Urine Cocaine Screen Negative (NEG=<300) 10/13/19 18:52 U Marijuana (THC) Screen Positive (NEG=<50) A 10/13/19 18:52 - Plan (1) Partial obstruction of small intestine Status: Acute Plan: NG TUBE, SURGICAL CONSULT, CONTINUE TO MONITOR (2) Urinary tract infection Status: Acute Qualifiers: Urinary tract infection type: acute cystitis Hematuria presence: without hematuria Qualified Code(s): N30.00 - Acute cystitis without hematuria Plan: ROCEPHIN 1G IV DAILY, CONTINUE TO MONITOR (3) Acute hypokalemia Status: Acute (4) SURINDER (iron deficiency anemia) Status: Acute Qualifiers: Iron deficiency anemia type: unspecified iron deficiency Qualified Code(s): D50.9 - Iron deficiency anemia, unspecified
[2019-10-15] MEDS: D5 1/2 NS 1000 ML 1,000 ML IV SCH ×4 (01:07→10:34)
[2019-10-15] MEDS ORDERED: MAGNESIUM SULFATE 1 GRAM/100 mL PREMIX 1 GM/100 ML BAG IV PRN (05:00)
[2019-10-15 05:07] LABS: BASOPHILS # (AUTO) 0.1 X10^3/uL (0.0-0.1); BASOPHILS % (AUTO) 1.1 % (0.2-1.0); EOSINOPHILS # (AUTO) 0.1 x10^3/uL (0.0-0.2); EOSINOPHILS % (AUTO) 2.9 % (0.9-2.9); HEMATOCRIT 29.4 % (36.0-47.0); HEMOGLOBIN 9.2 g/dL (12.0-16.0); LYMPHOCYTES # (AUTO) 1.9 X10^3/uL (1.3-2.9); LYMPHOCYTES % (AUTO) 39.9 % (21.0-51.0); MEAN CORPUSCULAR HEMOGLOBIN 22.6 pg (27.0-34.0); MEAN CORPUSCULAR HGB CONC 31.4 g/dL (33.0-35.0); MEAN PLATELET VOLUME 8.2 fL (7.4-11.0); MONOCYTES # (AUTO) 0.7 x10^3/uL (0.3-0.8); MONOCYTES % (AUTO) 15.5 % (0.0-13.0); NEUTROPHILS % (AUTO) 40.6 % (42.0-75.0); PLATELET COUNT 200 X10^3/uL (150.0-450.0); RED BLOOD COUNT 4.09 X10^6/uL (3.5-5.4); RED CELL DISTRIBUTION WIDTH 18.7 % (11.6-16.5); WHITE BLOOD COUNT 4.8 X10^3/uL (3.6-10.0)
[2019-10-15 05:15] LABS: ALANINE AMINOTRANSFERASE 16 Units/L (12-78); ALKALINE PHOSPHATASE 42 Units/L (46-116); ASPARTATE AMINO TRANSFERASE 20 Units/L (15-37); BLOOD UREA NITROGEN 2 mg/dL (7-18); CALCIUM 7.8 mg/dL (8.5-10.1); CARBON DIOXIDE 24.1 mmol/L (21-32); CHLORIDE 108 mmol/L (98-107); COR CA(FOR HYPOALB) 8.6 mg/dL (8.5-10.1); CREATININE 0.68 mg/dL (0.55-1.02); SODIUM 141 mmol/L (136-145); eGFR NON BLACK RACES > 60 (>60)
[2019-10-15 05:31] LABS: HYPOCHROMASIA 1+; PLATELET MORPHOLOGY COMMENT NORMAL (NORMAL); TARGET CELLS SLIGHT
[2019-10-15 08:03] VITALS: BP 139/82
[2019-10-15] MEDS: PROTONIX INJ 40 MG VIAL IVP SCH (08:56)
[2019-10-15] MEDS: ROCEPHIN VIAL 1 GRAM 1 G in NS 100 ML IV + SPIKE MINIBAG* 100 ML IV SCH (08:56)
--- NOTE | 2019-10-15 12:06 | RAD ---
History: Abdominal pain Study: KUB Comparison: October 14, 2019 Findings: The bowel gas pattern is now normal and unremarkable without gaseous distention of bowel. There are cholecystectomy clips. No urinary tract calcification is suggested. There is unchanged focal levoscoliosis at L3-4 with overgrowth an increased height of the L4 vertebral body superior endplate left laterally and associated disc space narrowing and left sided osteophyte formation. I do not visualize a normal left L4 pedicle. Impression: Bowel gas pattern now within normal limits. No acute disease demonstrated on this exam. Reported By:
== END 2019-10-15 12:40 | disposition home or self-care (01) | DRG 389 ==
LOC: ER 19:58 → MED/SURG 21:49
PROVIDERS: ADMIT Internal Medicine; ATTEND Internal Medicine
CPT/HCPCS: 36415; 74000; 74018; 74176; 80048; 80053; 80307; 81001; 82607; 82728; 82746; 83540; 83690; 83735; 84132; 84466; 85025; 87086; 96365; 96372; 96374; 99284; A4222; C9113; G0434; J0696; J2270; J2550; J7030; J7050; S5010

== ENCOUNTER 2021-09-10 06:17 | Inpatient (IN) ==
[2021-09-09 14:59] LABS: EOSINOPHILS # (AUTO) 0.1 x10^3/uL (0.0-0.2); HEMOGLOBIN 8.4 g/dL (12.0-16.0); PLATELET COUNT 239 X10^3/uL (150.0-450.0)
[2021-09-09 15:03] LABS: BASOPHILS # (AUTO) 0.1 X10^3/uL (0.0-0.1); BASOPHILS % (AUTO) 0.8 % (0.2-1.0); HEMATOCRIT 25.9 % (36.0-47.0); LYMPHOCYTES # (AUTO) 1.5 X10^3/uL (1.3-2.9); LYMPHOCYTES % (AUTO) 20.5 % (21.0-51.0); MEAN CORPUSCULAR HEMOGLOBIN 23.2 pg (27.0-34.0); MEAN CORPUSCULAR HGB CONC 32.3 g/dL (33.0-35.0); MEAN PLATELET VOLUME 8.6 fL (7.4-11.0); MONOCYTES # (AUTO) 0.8 x10^3/uL (0.3-0.8); MONOCYTES % (AUTO) 11.5 % (0.0-13.0); NEUTROPHILS # (AUTO) 4.9 x10^3/uL (2.2-4.8); NEUTROPHILS % (AUTO) 66.2 % (42.0-75.0); RED CELL DISTRIBUTION WIDTH 15.9 % (11.6-16.5); WHITE BLOOD COUNT 7.4 X10^3/uL (3.6-10.0)
[2021-09-09 15:05] LABS: BLOOD UREA NITROGEN 9 mg/dL (7-18); CALCIUM 7.8 mg/dL (8.5-10.1); CARBON DIOXIDE 25.3 mmol/L (21-32); CHLORIDE 104 mmol/L (98-107); CREATININE 0.58 mg/dL (0.55-1.02); SODIUM 137 mmol/L (136-145); eGFR NON BLACK RACES > 60 (>60)
[2021-09-09 15:41] LABS: HYPOCHROMASIA 1+; PLATELET MORPHOLOGY COMMENT NORMAL (NORMAL); POIKILOCYTOSIS 2+
[2021-09-09 15:42] LABS: ANISOCYTOSIS SLIGHT; MICROCYTOSIS SLIGHT; TARGET CELLS PRESENT; TEAR DROP CELLS PRESENT
[2021-09-09 15:54] LABS: BILIRUBIN,URINE 2+ (NEGATIVE); BLOOD/HEMOGLOBIN,URINE 3+ (NEGATIVE); GLUCOSE, URINE NEGATIVE (NEGATIVE); KETONES,URINE NEGATIVE (NEGATIVE); LEUKOCYTE ESTERASE ,URINE 3+ (NEGATIVE); NITRITES,URINE NEGATIVE (NEGATIVE); PROTEIN,URINE 2+ (NEGATIVE); UROBILINOGEN,URINE 3+ (NORMAL)
[2021-09-09 16:03] LABS: APPEARANCE,URINE CLOUDY (CLEAR); COLOR,URINE DARK YELLOW (YELLOW)
[2021-09-09 16:04] LABS: BACTERIA,URINE 1+ /HPF (NEGATIVE); MUCUS,URINE RARE /HPF (NEGATIVE); SQUAMOUS EPITHELIAL CELL,UR NUMEROUS /HPF (NEGATIVE); TRICHOMONAS,URINE FEW /HPF (NEGATIVE); YEAST,URINE RARE /HPF (NEGATIVE)
[2021-09-10] MEDS ORDERED: LR 1000 ML IV 1,000 ML IV ONE ×3 (06:39→07:48)
[2021-09-10] MEDS ORDERED: ANCEF 1 GRAM IV PREMIX* 1 G/50 ML BAG IV ONE (06:39)
[2021-09-10] MEDS ORDERED: REGLAN INJ 10 MG VIAL ONE (06:51)
[2021-09-10] MEDS ORDERED: PEPCID 20 MG IV PREMIX* 50 ML IV ONE (06:52)
[2021-09-10] MEDS ORDERED: ZOFRAN INJ 4 MG VIAL ONE (06:52)
[2021-09-10] MEDS ORDERED: DILAUDID INJ ONE (07:04)
[2021-09-10] MEDS ORDERED: ANCEF VIAL 1 GRAM IVP ONE (07:13)
[2021-09-10] MEDS ORDERED: D5 1/2 NS 1000 ML 1,000 ML IV SCH (07:13)
[2021-09-10] MEDS ORDERED: DIPRIVAN VIAL ONE (07:19)
[2021-09-10] MEDS ORDERED: NEO-SYNEPHRINE INJ ONE (07:19)
[2021-09-10] MEDS ORDERED: NORMODYNE INJ 100 MG VIAL ONE (07:19)
[2021-09-10] MEDS ORDERED: EPHEDRINE SULFATE INJ ONE (07:19)
[2021-09-10] MEDS ORDERED: QUELICIN (OR ANECTINE) ONE (07:19)
[2021-09-10] MEDS ORDERED: ULTANE GAS IN ONE (07:19)
[2021-09-10] MEDS ORDERED: TORADOL 30 MG VIAL ONE (07:19)
[2021-09-10] MEDS ORDERED: BRIDION ONE (07:19)
[2021-09-10] MEDS ORDERED: MARCAINE SPINAL ONE (07:19)
[2021-09-10] MEDS ORDERED: PITOCIN ONE (07:19)
[2021-09-10] MEDS ORDERED: ZEMURON 50 MG VIAL ONE (07:19)
[2021-09-10] MEDS ORDERED: VERSED ONE (07:19)
[2021-09-10] MEDS ORDERED: LACRI-LUBE S.O.P. ONE (07:19)
[2021-09-10] MEDS ORDERED: XYLOCAINE 2 % (PLAIN) ONE (07:19)
[2021-09-10 08:33] LABS: HEMATOCRIT 22.9 % (36.0-47.0); HEMOGLOBIN 7.3 g/dL (12.0-16.0)
[2021-09-10] MEDS ORDERED: NS 500 ML IV 500 ML IV ONE (08:42)
[2021-09-10] MEDS ORDERED: BENADRYL INJ 50 MG VIAL IVP PRN (09:35)
[2021-09-10] MEDS ORDERED: PHENERGAN INJ 25 MG IM PRN (09:35)
[2021-09-10] MEDS ORDERED: DILAUDID INJ IVP PRN (09:35)
[2021-09-10] MEDS ORDERED: ZOFRAN INJ 4 MG VIAL IVP PRN ×2 (09:35→10:44)
[2021-09-10] MEDS ORDERED: NS 250 ML IV 250 ML IV ONE (10:40)
[2021-09-10] MEDS ORDERED: NARCAN INJ IVP PRN (10:44)
[2021-09-10] MEDS ORDERED: D5 1/2 NS 1000 ML 1,000 ML with PITOCIN 20 UNITS IV SCH ×4 (10:44→12:00)
[2021-09-10] MEDS ORDERED: PERCOCET TAB 5/325 MG PO PRN (10:44)
[2021-09-10] MEDS ORDERED: REGLAN INJ 10 MG VIAL IVP PRN (10:44)
[2021-09-10] MEDS ORDERED: ADACEL or BOOSTRIX TDaP VACCINE IM ONE (10:44)
[2021-09-10] MEDS ORDERED: NS 250 ML IV 250 ML IV PRN (10:46)
[2021-09-10] MEDS: BENADRYL INJ 50 MG VIAL IVP PRN ×2 (14:19→19:29)
[2021-09-10 15:44] LABS: HEMATOCRIT 28.2 % (36.0-47.0); HEMOGLOBIN 8.9 g/dL (12.0-16.0)
[2021-09-10] MEDS: TORADOL 30 MG VIAL IVP PRN ×2 (16:28→21:05)
[2021-09-11] MEDS: MYLICON TAB 80 MG CHEW PO PRN ×2 (03:29→20:35)
[2021-09-11] MEDS: TORADOL 30 MG VIAL IVP PRN (03:30)
[2021-09-11 05:26] LABS: HEMATOCRIT 21.6 % (36.0-47.0)
[2021-09-11 05:43] LABS: HEMOGLOBIN 6.9 g/dL (12.0-16.0)
[2021-09-11] MEDS ORDERED: MOTRIN TAB 800 MG PO PRN (07:49)
[2021-09-11] MEDS ORDERED: COLACE CAP 100 MG PO ONE (08:38)
[2021-09-11] MEDS ORDERED: PROTONIX TAB 40 MG PO ONE (08:38)
[2021-09-11] MEDS ORDERED: PERCOCET TAB 5/325 MG ONE (08:39)
[2021-09-11] MEDS: PERCOCET TAB 5/325 MG PO PRN ×2 (08:44→20:35)
[2021-09-11] MEDS: COLACE CAP 100 MG PO SCH ×2 (08:45→21:10)
[2021-09-11] MEDS: PROTONIX TAB 40 MG PO SCH (08:45)
[2021-09-11] MEDS: PRENATAL PLUS PO SCH (08:45)
[2021-09-11] MEDS: BACTROBAN TOPICAL OINT TOP SCH ×2 (09:35→22:20)
[2021-09-11] MEDS: FERROUS GLUCONATE PO SCH (18:15)
[2021-09-12] MEDS: PERCOCET TAB 5/325 MG PO PRN ×2 (03:25→08:54)
[2021-09-12] MEDS: MYLICON TAB 80 MG CHEW PO PRN (03:45)
[2021-09-12] MEDS: BACTROBAN TOPICAL OINT TOP SCH (05:17)
[2021-09-12] MEDS: FERROUS GLUCONATE PO SCH (06:21)
[2021-09-12 08:15] VITALS: BP 164/91
[2021-09-12] MEDS: COLACE CAP 100 MG PO SCH (08:54)
[2021-09-12] MEDS: PRENATAL PLUS PO SCH (08:54)
[2021-09-12] MEDS: PROTONIX TAB 40 MG PO SCH (08:54)
[2021-09-12 09:17] LABS: HEMATOCRIT 22.7 % (36.0-47.0); HEMOGLOBIN 7.2 g/dL (12.0-16.0)
== END 2021-09-12 12:50 | disposition home or self-care (01) | DRG 784 ==
LOC: LD 06:17 → MED/SURG 10:42
PROVIDERS: ADMIT Specialist; ATTEND Specialist
DX: A59.9 Trichomoniasis, unspecified; O99.013 Anemia complicating pregnancy, third trimester; D50.8 Other iron deficiency anemias; O34.212 Maternal care for vertical scar from previous cesarean delivery; O99.892 Other specified diseases and conditions complicating childbirth; N73.6 Female pelvic peritoneal adhesions (postinfective); N85.8 Other specified noninflammatory disorders of uterus; Z37.0 Single live birth; O99.613 Diseases of the digestive system complicating pregnancy, third trimester; Z3A.39 39 weeks gestation of pregnancy; D56.3 Thalassemia minor; Z01.818 Encounter for other preprocedural examination; A56.8 Sexually transmitted chlamydial infection of other sites; Z30.2 Encounter for sterilization; O98.313 Other infections with a predominantly sexual mode of transmission complicating pregnancy, third trimester